=== PATIENT | female | born 1950 | race Caucasian/White ===

== ENCOUNTER → 2016-10-08 | Outpatient (CLI) | payer BC ==
[2016-10-08 08:49] LABS: Basophils % (A) 1 %; CH 30.1; CHCM 32.4; Eosinophils # (A) 0.2 k/uL (0-0.7); Eosinophils % (A) 4 %; HCT 43.4 % (34.0-46.0); HDW 2.18; HGB 14.3 gm/dL (11.4-16.0); Luc # (Auto) 0.19; Luc % (Auto) 4; Lymphocytes # (A) 1.8 k/uL (1.0-4.8); Lymphocytes % (A) 38 %; MCH 30.7 pg (25.0-35.0); MCV 93.2 fL (80.0-100.0); Mean Platelet Volume 8.1; Monocytes # (A) 0.2 k/uL (0-1.0); Monocytes % (A) 5 %; Neutrophils # (A) 2.3 k/uL (1.3-7.7); Neutrophils % (A) 48 %; RBC 4.66 m/uL (3.80-5.40); RDW 13.3 % (11.5-15.5); WBC 4.7 k/uL (3.8-10.6); WBC (Perox) 4.61
[2016-10-08 09:39] LABS: ALT 30 U/L (9-52); AST 22 U/L (14-36); Alkaline Phosphatase 59 U/L (38-126); Anion Gap 10 mmol/L; Blood Urea Nitrogen 21 mg/dL (7-17); Calcium 9.6 mg/dL (8.4-10.2); Carbon Dioxide 29 mmol/L (22-30); Chloride 105 mmol/L (98-107); Cholesterol 199 mg/dL (<200); Glucose 89 mg/dL (74-99); HDL Cholesterol 84 mg/dL (40-60); Non-African American GFR(MDRD) >60 (>60 ml/min/1.73 sqM); Potassium 4.6 mmol/L (3.5-5.1); Sodium 144 mmol/L (137-145); Total Bilirubin 0.5 mg/dL (0.2-1.3); Total Protein 7.1 g/dL (6.3-8.2); Triglycerides 147 mg/dL (<150)
== END ==
LOC: LABWHC1 07:59
PROVIDERS: ATTEND Family Medicine
DX: Z01.419 Encounter for gynecological examination (general) (routine) without abnormal findings (principal); E55.9 Vitamin D deficiency, unspecified; I10 Essential (primary) hypertension; E03.9 Hypothyroidism, unspecified; Z13.220 Encounter for screening for lipoid disorders
CPT/HCPCS: 36415; 80053; 80061; 82306; 84439; 84443; 85025

== ENCOUNTER → 2017-10-05 | Outpatient (CLI) | payer MEDICARE ==
[2017-10-05 08:02] LABS: Basophils # (A) 0.1 k/uL (0-0.2); Basophils % (A) 1 %; Eosinophils # (A) 0.2 k/uL (0-0.7); Eosinophils % (A) 5 %; HCT 43.5 % (34.0-46.0); HGB 13.8 gm/dL (11.4-16.0); Lymphocytes % (A) 44 %; MCH 29.8 pg (25.0-35.0); MCHC 31.8 g/dL (31.0-37.0); Mean Platelet Volume 7.6; Monocytes # (A) 0.2 k/uL (0-1.0); Monocytes % (A) 5 %; Neutrophils # (A) 1.9 k/uL (1.3-7.7); Neutrophils % (A) 42 %; Platelet Count 279 k/uL (150-450); RBC 4.63 m/uL (3.80-5.40); RDW 13.3 % (11.5-15.5); WBC 4.6 k/uL (3.8-10.6)
[2017-10-05 08:43] LABS: ALT 24 U/L (9-52); AST 25 U/L (14-36); Albumin 4.3 g/dL (3.5-5.0); Alkaline Phosphatase 59 U/L (38-126); Anion Gap 10 mmol/L; Blood Urea Nitrogen 27 mg/dL (7-17); Calcium 9.9 mg/dL (8.4-10.2); Carbon Dioxide 30 mmol/L (22-30); Chloride 103 mmol/L (98-107); Cholesterol 208 mg/dL (<200); Glucose 91 mg/dL (74-99); HDL Cholesterol 94 mg/dL (40-60); LDL Cholesterol,Calculated 95 mg/dL (0-99); Potassium 4.6 mmol/L (3.5-5.1); Sodium 143 mmol/L (137-145); Total Bilirubin 0.4 mg/dL (0.2-1.3); Total Protein 7.1 g/dL (6.3-8.2); Triglycerides 97 mg/dL (<150)
[2017-10-05 08:48] LABS: T4, Free (Free Thyroxine) 1.16 ng/dL (0.78-2.19)
== END | disposition home or self-care (01) ==
LOC: LABWHC1 07:09
PROVIDERS: ATTEND Physician Assistant Medical
DX: E78.2 Mixed hyperlipidemia (principal); I10 Essential (primary) hypertension; E03.9 Hypothyroidism, unspecified; E55.9 Vitamin D deficiency, unspecified
CPT/HCPCS: 36415; 80053; 80061; 82306; 84439; 84443; 85025

== ENCOUNTER 2018-03-21 15:10 | Emergency (ER) | payer MEDICARE ==
[2018-03-21 16:47] LABS: Basophils # (A) 0.1 k/uL (0-0.2); Basophils % (A) 1 %; Eosinophils # (A) 0.3 k/uL (0-0.7); Eosinophils % (A) 4 %; HCT 41.4 % (34.0-46.0); HGB 13.3 gm/dL (11.4-16.0); Lymphocytes # (A) 2.2 k/uL (1.0-4.8); Lymphocytes % (A) 31 %; MCH 29.4 pg (25.0-35.0); MCHC 32.1 g/dL (31.0-37.0); MCV 91.6 fL (80.0-100.0); Mean Platelet Volume 7.1; Monocytes # (A) 0.3 k/uL (0-1.0); Monocytes % (A) 5 %; Neutrophils % (A) 58 %; Platelet Count 298 k/uL (150-450); RBC 4.52 m/uL (3.80-5.40); RDW 13.4 % (11.5-15.5)
[2018-03-21 16:55] LABS: Prothrombin Time 9.7 sec (9.0-12.0)
[2018-03-21 17:09] LABS: Albumin 4.4 g/dL (3.5-5.0); Calcium 9.8 mg/dL (8.4-10.2); Creatine Kinase 70 U/L (30-135); Potassium 4.7 mmol/L (3.5-5.1); Total Bilirubin 0.3 mg/dL (0.2-1.3); Total Protein 7.3 g/dL (6.3-8.2)
[2018-03-21] MEDS ORDERED: SODIUM CHLORIDE 0.9% 1,000 ML IV STA (17:11)
[2018-03-21 17:21] LABS: Creatine Kinase MB 0.8 ng/mL (0.0-2.4); Troponin I <0.012 ng/mL (0.000-0.034)
[2018-03-21] MEDS ORDERED: MAG HYDROX/AL HYDROX/SIMETH 30 ML, HYOSCYAMINE ELIXIR 10 ML, CIMETIDINE HCL 300 MG, LID... PO STA ×4 (17:34)
[2018-03-21 17:35] LABS: Appearance,Urine Clear (Clear); Bilirubin,Urine Negative (Negative); Blood,Urine Negative (Negative); Color,Urine Light Yellow; Glucose,Urine (UA) Negative (Negative); Ketones,Urine Negative (Negative); Leukocyte Esterase,Urine Negative (Negative); Nitrite,Urine Negative (Negative); PH, Urine 7.5 (5.0-8.0); Protein,Urine Negative (Negative); Specific Gravity,Urine 1.009 (1.001-1.035); Urobilinogen,Urine <2.0 mg/dL (<2.0)
--- NOTE | 2018-03-21 17:35 | XR ---
EXAMINATION TYPE: XR KUB DATE OF EXAM: 03/21/2018 COMPARISON: NONE HISTORY: Epigastric pain TECHNIQUE: 2 views upright FINDINGS: Bowel gas pattern is normal. There is no sign of intestinal obstruction or pneumoperitoneum . Fecal pattern is normal. There is a single surgical clip in the right mid abdomen. There is no evid ence of a mass. IMPRESSION: Nonacute abdomen.
--- NOTE | 2018-03-21 17:35 | XR ---
EXAMINATION TYPE: XR chest 2V DATE OF EXAM: 03/21/2018 COMPARISON: 05/25/2017 HISTORY: Chest pain TECHNIQUE: Frontal and lateral views of the chest are obtained. FINDINGS: Heart and mediastinum are normal. Lungs are clear. There are surgical clips at the left ax illa. There is no pleural effusion. Bony thorax is intact. IMPRESSION: Normal chest. No change.
--- NOTE | 2018-03-21 17:42 | ED ---
General Adult HPI - General Source: patient, RN notes reviewed Mode of arrival: ambulatory Limitations: no limitations <Salvatore Yates - Last Filed: 03/21/18 18:46> <Arsen Calle - Last Filed: 03/21/18 19:00> - General Chief complaint: Abdominal Pain Stated complaint: chest & back pain Time Seen by Provider: 03/21/18 17:09 - History of Present Illness Initial comments: Her old female presents to the emergency department for a chief complaint of epigastric pain 4 days. She states the pain is in the epigastric area and radiates to the back as well. Patient states they were on vacation camping when the pain started. Patient states she was sleeping when she first noticed the pain. Patient states that sitting up helps to alleviate the pain. Patient states the pain occurred on and off throughout the day and always worsening when she laid down. He shouldn't is unable to describe the pain. Patient states her pain is at a 4 out of 10 at this time but does not want anything for pain. Patient admits to mild nausea over the past few days intermittently but denies nausea at this time or vomiting. Patient denies any diarrhea. Patient states she has been burping somewhat more than normal. Patient states she has felt acid reflux before but this is somewhat worse. Patient states she has had a history of breast cancer with the last diagnosis occurring 2 years ago. Patient denies any cardiac or abdominal medical history.No fevers or chills. Patient has no other complaints at this time including shortness of breath, chest pain, abdominal pain, nausea or vomiting, headache, or visual changes. ( Salvatore Yates) - Related Data Home Medications Medication Instructions Recorded Confirmed Aspirin 81 mg PO DAILY 12/05/14 03/21/18 Biotin 5 mg PO DAILY 12/05/14 03/21/18 Celecoxib [CeleBREX] 200 mg PO BID 12/05/14 03/21/18 Fexofenadine HCl [Myrna Allergy] 180 mg PO DAILY 12/05/14 03/21/18 Levothyroxine Sodium [Synthroid] 75 mcg PO QAM 12/05/14 03/21/18 [place]-3 Fatty Acids/Fish Oil [Fish 2 cap PO BID 12/05/14 03/21/18 Oil 1,000 mg Softgel] Pseudoephedrine [Sudafed] 120 mg PO QAM 12/05/14 03/21/18 Simvastatin [Zocor] 10 mg PO HS 12/05/14 03/21/18 Triamcinolone Acetonide [Nasacort] 1 spray EA NOSTRIL QAM PRN 12/05/14 03/21/18 Vitamin E (Dl,Tocopheryl Acet) 400 unit PO DAILY 12/05/14 03/21/18 [Vitamin E] cycloSPORINE [Restasis] 1 drop BOTH EYES BID 12/05/14 03/21/18 Polyethylene Glycol 3350 [Miralax] 17 gm PO MOWEFR 11/20/15 03/21/18 Acetaminophen Tab [Tylenol Tab] 1,000 mg PO TID PRN 03/21/18 03/21/18 Calcium/Vit D3 220mg/500iu 2 tab PO DAILY 03/21/18 03/21/18 Cholecalciferol [Vitamin D3] 1,000 unit PO DAILY 03/21/18 03/21/18 Lisinopril [Zestril] 5 mg PO DAILY 03/21/18 03/21/18 Turmeric Root Extract [Turmeric] 1,000 mg PO DAILY 03/21/18 03/21/18 Allergies Allergy/AdvReac Type Severity Reaction Status Date / Time alcohol Allergy Anaphylaxis Verified 03/21/18 17:37 [From Mastisol Liquid Adhesive] gum mastic Allergy Anaphylaxis Verified 03/21/18 17:37 [From Mastisol Liquid Adhesive] methyl salicylate Allergy Anaphylaxis Verified 03/21/18 17:37 [From Mastisol Liquid Adhesive] propofol Allergy Anaphylaxis Verified 03/21/18 17:37 storax Allergy Anaphylaxis Verified 03/21/18 17:37 [From Mastisol Liquid Adhesive] Review of Systems ROS Other: All systems not noted in ROS Statement are negative. <Salvatore Yates - Last Filed: 03/21/18 18:46> ROS Other: All systems not noted in ROS Statement are negative. <Arsen Calle - Last Filed: 03/21/18 19:00> ROS Statement: Those systems with pertinent positive or pertinent negative responses have been documented in the HPI. Past Medical History Past Medical History: Cancer, Thyroid Disorder Additional Past Medical History / Comment(s): BREAST CANCER (2003). DRY EYES. PHENOBARB FOR INSOMNIA. History of Any Multi-Drug Resistant Organisms: None Reported Past Surgical History: Breast Surgery, Orthopedic Surgery Additional Past Surgical History / Comment(s): bilat MASTECTOMY. TMJ. SEVERAL SURGERIES ON FEET FOR PLANTAR FASCIATIS. ACHILLES TENDON REPAIR. D & C. Past Anesthesia/Blood Transfusion Reactions: Previous Problems w/ Anesthesia, Postoperative Nausea & Vomiting (PONV) Additional Past Anesthesia/Blood Transfusion Reaction / Comment(s): FIRST REACTION TO PROPOFOL WAS REDNESS UP THE ARM WHERE IV HAD BEEN STARTED. SECOND REACTION, ANAPHYLASIS. Past Psychological History: No Psychological Hx Reported Smoking Status: Never smoker Past Alcohol Use History: None Reported Past Drug Use History: None Reported - Past Family History Father Family Medical History: Cancer Additional Family Medical History / Comment(s): BRAIN <Salvatore Yates - Last Filed: 03/21/18 18:46> General Exam Limitations: no limitations General appearance: alert, in no apparent distress Head exam: Present: atraumatic, normocephalic, normal inspection Eye exam: Present: normal appearance. Absent: scleral icterus, conjunctival injection ENT exam: Present: normal exam, mucous membranes moist Neck exam: Present: normal inspection, full ROM. Absent: tenderness, meningismus, lymphadenopathy Respiratory exam: Present: normal lung sounds bilaterally. Absent: respiratory distress, wheezes, rales, rhonchi, stridor Cardiovascular Exam: Present: regular rate, normal rhythm, normal heart sounds. Absent: systolic murmur, diastolic murmur, rubs, gallop, clicks GI/Abdominal exam: Present: soft, tenderness (mild epigastric tenderness, palpation reproduces symptoms. no tenderness in the LUQ or RUQ or lower abdomen) , normal bowel sounds, other (negative mo sign, negative obturator/psoas signs). Absent: distended, guarding (no gaurding when palpated), rebound, rigid <Salvatore Yates - Last Filed: 03/21/18 18:46> Course <Salvatore Yates - Last Filed: 03/21/18 18:46> <Arsen Calle - Last Filed: 03/21/18 19:00> Vital Signs 03/21/18 03/21/18 16:07 18:20 Temperature 98.1 F Pulse Rate 99 74 Respiratory 18 18 Rate Blood Pressure 145/91 162/84 O2 Sat by Pulse 99 99 Oximetry - Reevaluation(s) Reevaluation #1: 03/21/18 19:00 PA supervision: I personally saw and examined the patient. IV reviewed and agree with the PAs findings including all diagnostic interpretations and treatment plans is written unless otherwise stated. (Arsen Calle) Medical Decision Making - Lab Data Result diagrams: 03/21/18 16:32 03/21/18 16:32 <Salvatore Yates - Last Filed: 03/21/18 18:46> - Lab Data Result diagrams: 03/21/18 16:32 03/21/18 16:32 <Arsen Calle - Last Filed: 03/21/18 19:00> - Medical Decision Making 67-year-old female presents to the emergency determine for a chief complaint of epigastric pain 4 days. Patient states the pain is worse when she lies down and better when she sits up. Patient does have a history of breast cancer, no cardiac or abdominal history. On exam patient has mild epigastric tenderness without guarding. Negative Mo sign. No left upper quadrant tenderness. CBC unremarkable. Cardiac panel and troponin negative. CMP unremarkable. Amylase and lipase within normal limits. Urine shows no evidence of infection or blood. Chest x-ray shows a normal chest, no change. CT abdomen with contrast shows a normal spleen and pancreas and gallbladder. Bile ducts are not dilated. Some spondylosis in the lower spine without any significant spinal stenosis. Normal appendix. Given patient's pain increases when lying down as well as epigastric location it is likely related to a gastritis or GERD. Patient will continue her Prilosec given 3 days ago by an urgent care. She will follow up with GI in 1-2 days. Patient aware to return to the emergency Department if she has any worsening symptoms or shortness of breath. ( Salvatore Yates) - Lab Data Lab Results 03/21/18 03/21/18 03/21/18 Range/Units 16:32 16:32 16:32 WBC 7.0 (3.8-10.6) k/uL RBC 4.52 (3.80-5.40) m/uL Hgb 13.3 (11.4-16.0) gm/dL Hct 41.4 (34.0-46.0) % MCV 91.6 (80.0-100.0) fL MCH 29.4 (25.0-35.0) pg MCHC 32.1 (31.0-37.0) g/dL RDW 13.4 (11.5-15.5) % Plt Count 298 (150-450) k/uL Neutrophils % 58 % Lymphocytes % 31 % Monocytes % 5 % Eosinophils % 4 % Basophils % 1 % Neutrophils # 4.0 (1.3-7.7) k/uL Lymphocytes # 2.2 (1.0-4.8) k/uL Monocytes # 0.3 (0-1.0) k/uL Eosinophils # 0.3 (0-0.7) k/uL Basophils # 0.1 (0-0.2) k/uL PT (9.0-12.0) sec INR (<1.2) APTT (22.0-30.0) sec Sodium 141 (137-145) mmol/L Potassium 4.7 (3.5-5.1) mmol/L Chloride 103 (98-107) mmol/L Carbon Dioxide 29 (22-30) mmol/L Anion Gap 9 mmol/L BUN 25 H (7-17) mg/dL Creatinine 1.04 (0.52-1.04) mg/dL Est GFR (CKD-EPI)AfAm 65 (>60 ml/min/1.73 sqM) Est GFR (CKD-EPI)NonAf 57 (>60 ml/min/1.73 sqM) Glucose 96 (74-99) mg/dL Calcium 9.8 (8.4-10.2) mg/dL Total Bilirubin 0.3 (0.2-1.3) mg/dL AST 32 (14-36) U/L ALT 35 (9-52) U/L Alkaline Phosphatase 57 (38-126) U/L Total Creatine Kinase 70 (30-135) U/L CK-MB (CK-2) 0.8 (0.0-2.4) ng/mL CK-MB (CK-2) Rel Index 1.1 Troponin I <0.012 (0.000-0.034) ng/mL Total Protein 7.3 (6.3-8.2) g/dL Albumin 4.4 (3.5-5.0) g/dL Amylase 83 (30-110) U/L Lipase 54 (23-300) U/L Urine Color Urine Appearance (Clear) Urine pH (5.0-8.0) Ur Specific [place] (1.001-1.035) Urine Protein (Negative) Urine Glucose (UA) (Negative) Urine Ketones (Negative) Urine Blood (Negative) Urine Nitrite (Negative) Urine Bilirubin (Negative) Urine Urobilinogen (<2.0) mg/dL Ur Leukocyte Esterase (Negative) 03/21/18 03/21/18 Range/Units 16:32 17:15 WBC (3.8-10.6) k/uL RBC (3.80-5.40) m/uL Hgb (11.4-16.0) gm/dL Hct (34.0-46.0) % MCV (80.0-100.0) fL MCH (25.0-35.0) pg MCHC (31.0-37.0) g/dL RDW (11.5-15.5) % Plt Count (150-450) k/uL Neutrophils % % Lymphocytes % % Monocytes % % Eosinophils % % Basophils % % Neutrophils # (1.3-7.7) k/uL Lymphocytes # (1.0-4.8) k/uL Monocytes # (0-1.0) k/uL Eosinophils # (0-0.7) k/uL Basophils # (0-0.2) k/uL PT 9.7 (9.0-12.0) sec INR 1.0 (<1.2) APTT 23.0 (22.0-30.0) sec Sodium (137-145) mmol/L Potassium (3.5-5.1) mmol/L Chloride (98-107) mmol/L Carbon Dioxide (22-30) mmol/L Anion Gap mmol/L BUN (7-17) mg/dL Creatinine (0.52-1.04) mg/dL Est GFR (CKD-EPI)AfAm (>60 ml/min/1.73 sqM) Est GFR (CKD-EPI)NonAf (>60 ml/min/1.73 sqM) Glucose (74-99) mg/dL Calcium (8.4-10.2) mg/dL Total Bilirubin (0.2-1.3) mg/dL AST (14-36) U/L ALT (9-52) U/L Alkaline Phosphatase (38-126) U/L Total Creatine Kinase (30-135) U/L CK-MB (CK-2) (0.0-2.4) ng/mL CK-MB (CK-2) Rel Index Troponin I (0.000-0.034) ng/mL Total Protein (6.3-8.2) g/dL Albumin (3.5-5.0) g/dL Amylase (30-110) U/L Lipase (23-300) U/L Urine Color Light Yellow Urine Appearance Clear (Clear) Urine pH 7.5 (5.0-8.0) Ur Specific [place] 1.009 (1.001-1.035) Urine Protein Negative (Negative) Urine Glucose (UA) Negative (Negative) Urine Ketones Negative (Negative) Urine Blood Negative (Negative) Urine Nitrite Negative (Negative) Urine Bilirubin Negative (Negative) Urine Urobilinogen <2.0 (<2.0) mg/dL Ur Leukocyte Esterase Negative (Negative) Disposition Is patient prescribed a controlled substance at d/c from ED?: No Time of Disposition: 18:38 <Salvatore Yates - Last Filed: 03/21/18 18:46> <Arsen Calle - Last Filed: 03/21/18 19:00> Clinical Impression: Gastritis, GERD (gastroesophageal reflux disease) Disposition: HOME SELF-CARE Condition: Good Instructions: Diet for Stomach Ulcers and Gastritis (ED), Gastroesophageal Reflux Disease (ED) Additional Instructions: Please follow up with primary care as well as GI in 1-2 days. Please continue to take Prilosec. Try not to eat close to bedtime and try not to eat acidic foods. Return to the emergency department if you've any worsening symptoms. Referrals: Daron Burleson III, MD [Primary Care Provider] - 1-2 days Mychal Sr MD [Medical Doctor] - 1-2 days Addendum entered and electronically signed by Salvatore Yates PA-C 03/21/18 18 :53: Patient states GI cocktail helped somewhat. EKG: Normal sinus rhythm, ventricular rate 86, FL interval 164, QRS duration 96 , no evidence of ST elevation or depression
--- NOTE | 2018-03-21 18:16 | CT ---
EXAMINATION TYPE: CT abdomen pelvis w con DATE OF EXAM: 03/21/2018 COMPARISON: Epigastric pain. Back pain HISTORY: Epigastric and back pain. CT DLP: 473.9 mGycm Automated exposure control for dose reduction was used. TECHNIQUE: Helical acquisition of images was performed from the lung bases through the pelvis. CONTRAST: Performed without Oral Contrast and with IV Contrast, patient injected with 80 mL of Isovue M300. FINDINGS: There is subsegmental atelectasis at the posterior lung base on the right side. There is no pleural e ffusion. Heart size is normal. spleen pancreas gallbladder appear normal. Bile ducts are not dilated . There is 12 mm cyst in the anterior right lobe of the liver. There is no adrenal mass. Kidneys show satisfactory contrast opacification. There is no hydronephrosis. There is no retroperitoneal adenopa thy. Abdominal aorta is atheromatous. There is no intestinal wall thickening. There are no dilated lo ops. Uterus is anteverted. Bladder distends smoothly. There is no pelvic mass. There is some spondylo sis in the lower lumbar spine. There is 5 mm degenerative L4-5 spondylolisthesis. The appendix appear s normal. IMPRESSION: DEGENERATIVE FIRST-DEGREE L4-5 SPONDYLOLISTHESIS. SMALL HEPATIC CYST. NORMAL APPENDIX. NO SIGNIFICANT SPINAL STENOSIS.
[2018-03-21 18:21] VITALS: PULSE 74
[2018-03-21 19:02] VITALS: BP 175/76; RESP 16; TEMP 98.4
== END 2018-03-21 19:02 | disposition home or self-care (01) ==
LOC: EC 15:10
DX: K21.9 Gastro-esophageal reflux disease without esophagitis (principal); K29.70 Gastritis, unspecified, without bleeding; E07.9 Disorder of thyroid, unspecified; Z85.3 Personal history of malignant neoplasm of breast; Z79.82 Long term (current) use of aspirin; Z79.899 Other long term (current) drug therapy; Z91.048 Other nonmedicinal substance allergy status; Z88.8 Allergy status to other drugs, medicaments and biological substances
CPT/HCPCS: 36415; 71046; 74018; 74177; 80053; 81003; 82150; 82550; 82553; 83690; 84484; 85025; 85610; 85730; 93005; 96360; 99284

== ENCOUNTER → 2018-05-08 | Outpatient (CLI) | payer MEDICARE ==
--- NOTE | 2018-05-08 08:19 | US ---
EXAMINATION TYPE: US abdomen complete DATE OF EXAM: 05/08/2018 COMPARISON: CT 03/21/2018 CLINICAL HISTORY: R10.13 EPIGASTRIC PAIN. One episode of epigastric pain in March, better now EXAM MEASUREMENTS: Liver Length: 16.1 cm Gallbladder Wall: 0.2 cm CBD: 0.46 cm Spleen: Not measured cm Right Kidney: 9.6 x 3.5 x 4.6 cm Left Kidney: 9.4 x 4.6 x 4.4 cm Pancreas: Obscured by bowel gas, visualized portions wnl Liver: Heterogeneous. Cystic area visualized measuring 1.2cm in right lobe Gallbladder: wnl Evidence for sonographic Mo's sign: No CBD: wnl Spleen: Unable to visualize on this exam, Obscured by overlying bowel gas Right Kidney: No hydronephrosis or masses seen Left Kidney: Extremely difficult and limited visualization due to overlying bowel gas. Visualized por tions wnl Upper IVC: wnl Abd Aorta: Atherosclerotic changes visualized IMPRESSION: 1. The liver is heterogeneous and contains a focal hypoechoic lesion. Correlate for hepatocellular di sease, hepatitis or less likely fatty infiltration. Hypoechoic lesion likely related to simple cyst d escribed by CT scan. 2. Pancreas, left kidney and spleen are secured by bowel gas. 3. The gallbladder is distended but there is no wall thickening or gallstones correlate clinically.
== END | disposition home or self-care (01) ==
LOC: RADUSWWP 06:48
PROVIDERS: ATTEND Internal Medicine
DX: K82.8 Other specified diseases of gallbladder (principal); K76.89 Other specified diseases of liver
CPT/HCPCS: 76700

== ENCOUNTER → 2018-10-20 | Outpatient (CLI) | payer MEDICARE ==
[2018-10-20 08:50] LABS: Basophils # (A) 0.1 k/uL (0-0.2); Basophils % (A) 1 %; Eosinophils # (A) 0.3 k/uL (0-0.7); Eosinophils % (A) 4 %; HCT 44.7 % (34.0-46.0); HGB 13.8 gm/dL (11.4-16.0); Lymphocytes # (A) 1.5 k/uL (1.0-4.8); Lymphocytes % (A) 23 %; MCHC 30.8 g/dL (31.0-37.0); MCV 94.2 fL (80.0-100.0); Mean Platelet Volume 7.2; Monocytes # (A) 0.4 k/uL (0-1.0); Monocytes % (A) 6 %; Neutrophils # (A) 4.2 k/uL (1.3-7.7); Neutrophils % (A) 64 %; Platelet Count 304 k/uL (150-450); RBC 4.75 m/uL (3.80-5.40); RDW 13.1 % (11.5-15.5); WBC 6.6 k/uL (3.8-10.6)
[2018-10-20 16:31] LABS: Albumin 4.4 g/dL (3.80-4.90); Anion Gap 7.3 mmol/L (4.00-12.00); Calcium 9.4 mg/dL (8.7-10.3); Carbon Dioxide 28.7 mmol/L (21.6-31.8); Globulin 2.2 g/dL (1.6-3.3); Potassium 4.6 mmol/L (3.5-5.5); Total Bilirubin 0.3 mg/dL (0.2-1.2); Total Protein 6.6 g/dL (6.2-8.2)
== END | disposition home or self-care (01) ==
LOC: LABWHC1 08:11
PROVIDERS: ATTEND Physician Assistant Medical
DX: E78.2 Mixed hyperlipidemia (principal); E55.9 Vitamin D deficiency, unspecified; I10 Essential (primary) hypertension; E03.9 Hypothyroidism, unspecified
CPT/HCPCS: 36415; 80053; 80061; 82306; 84443; 85025

== ENCOUNTER → 2018-12-18 | Outpatient (CLI) | payer MEDICARE ==
--- NOTE | 2018-12-18 15:19 | XR ---
EXAMINATION TYPE: XR chest 2V DATE OF EXAM: 12/18/2018 COMPARISON: 03/21/2018 HISTORY: Breast cancer. History of double mastectomy. TECHNIQUE: Frontal and lateral views of the chest are obtained. FINDINGS: There is no focal air space opacity, pleural effusion, or pneumothorax seen. Surgical clip s are seen along the left chest wall from prior mastectomy. The cardiac silhouette size is within nor mal limits. The osseous structures are intact. IMPRESSION: No acute cardiopulmonary process.
== END | disposition home or self-care (01) ==
LOC: RADXRMAIN 13:44
PROVIDERS: ATTEND Internal Medicine Hematology & Oncology
DX: C50.412 Malignant neoplasm of upper-outer quadrant of left female breast (principal); C50.411 Malignant neoplasm of upper-outer quadrant of right female breast
CPT/HCPCS: 71046

== ENCOUNTER → 2019-10-23 | Outpatient (CLI) | payer MEDICARE ==
[2019-10-23 08:28] LABS: Basophils % (A) 1 %; Eosinophils # (A) 0.2 k/uL (0-0.7); Eosinophils % (A) 4 %; HCT 44.9 % (34.0-46.0); HGB 14.3 gm/dL (11.4-16.0); Lymphocytes # (A) 2.2 k/uL (1.0-4.8); Lymphocytes % (A) 42 %; MCH 29.7 pg (25.0-35.0); MCHC 31.9 g/dL (31.0-37.0); Mean Platelet Volume 7.7; Monocytes # (A) 0.3 k/uL (0-1.0); Monocytes % (A) 6 %; Neutrophils # (A) 2.3 k/uL (1.3-7.7); Neutrophils % (A) 44 %; Platelet Count 276 k/uL (150-450); RBC 4.83 m/uL (3.80-5.40); WBC 5.3 k/uL (3.8-10.6)
[2019-10-23 16:45] LABS: African American GFR (CKD) 67.5 (60.0-200.0); Albumin 4.7 g/dL (3.80-4.90); Albumin/Globulin Ratio 2.14 (1.60-3.17); Anion Gap 5.2 mmol/L (4.00-12.00); Calcium 9.6 mg/dL (8.7-10.3); Carbon Dioxide 33.8 mmol/L (21.6-31.8); Chol/HDL Ratio 2.7; Globulin 2.2 g/dL (1.6-3.3); LDL Cholesterol,Calculated 115.6 mg/dL (0.0-131.0); Non-African American GFR(CKD) 58.2 (60.0-200.0); Potassium 4.7 mmol/L (3.5-5.5); Total Bilirubin 0.4 mg/dL (0.3-1.2); Total Protein 6.9 g/dL (6.2-8.2); VLDL Calculation 30.4 mg/dL (5.00-40.00)
== END | disposition home or self-care (01) ==
LOC: LABWHC1 07:40
PROVIDERS: ATTEND Family Medicine
DX: I10 Essential (primary) hypertension (principal); E78.2 Mixed hyperlipidemia; E03.9 Hypothyroidism, unspecified; E55.9 Vitamin D deficiency, unspecified
CPT/HCPCS: 36415; 80053; 80061; 82306; 84443; 85025

== ENCOUNTER → 2020-10-09 | Outpatient (CLI) | payer MEDICARE ==
[2020-10-09 10:30] LABS: ALT 20 U/L (4-34); AST 26 U/L (14-36); African American GFR (CKD) 83 (>60 ml/min/1.73 sqM); Albumin 4.4 g/dL (3.5-5.0); Albumin/Globulin Ratio 1.7; Alkaline Phosphatase 58 U/L (38-126); Anion Gap 5 mmol/L; Blood Urea Nitrogen 25 mg/dL (7-17); Calcium 9.6 mg/dL (8.4-10.2); Carbon Dioxide 30 mmol/L (22-30); Chloride 104 mmol/L (98-107); Cholesterol 209 mg/dL (<200); Globulin 2.6 g/dL; Glucose 92 mg/dL (74-99); HDL Cholesterol 84 mg/dL (40-60); LDL Cholesterol,Calculated 101 mg/dL (0-99); Non-African American GFR(CKD) 72 (>60 ml/min/1.73 sqM); Potassium 4.9 mmol/L (3.5-5.1); Sodium 139 mmol/L (137-145); Total Bilirubin 0.5 mg/dL (0.2-1.3); Triglycerides 118 mg/dL (<150)
[2020-10-09 15:56] LABS: Basophils # (A) 0.06 X 10*3/uL (0.00-0.10); Basophils % (A) 1.2 %; Eosinophils # (A) 0.19 X 10*3/uL (0.04-0.35); Eosinophils % (A) 3.9 %; HCT 42.7 % (37.2-46.3); HGB 13.9 g/dL (12.0-15.0); Lymphocytes # (A) 1.91 X 10*3/uL (0.90-5.00); Lymphocytes % (A) 39.1 %; MCH 30.7 pg (27.0-32.0); MCHC 32.6 g/dL (32.0-37.0); MCV 94.3 fL (80.0-97.0); Mean Platelet Volume 11.3 fL (9.5-12.2); Monocytes # (A) 0.37 X 10*3/uL (0.20-1.00); Monocytes % (A) 7.6 %; Neutrophils # (A) 2.35 X 10*3/uL (1.80-7.70); Platelet Count 282 X 10*3/uL (140-440); RBC 4.53 X 10*6/uL (4.10-5.20); RDW 13.2 % (11.5-14.5); WBC 4.89 X 10*3/uL (4.50-10.00)
== END | disposition home or self-care (01) ==
LOC: LABWHC1 08:15
PROVIDERS: ATTEND Family Medicine
DX: E78.2 Mixed hyperlipidemia (principal); E03.9 Hypothyroidism, unspecified; E55.9 Vitamin D deficiency, unspecified; I10 Essential (primary) hypertension
CPT/HCPCS: 36415; 80053; 80061; 82306; 84443; 85025

== ENCOUNTER → 2021-10-08 | Outpatient (CLI) | payer MEDICARE ==
[2021-10-08 11:07] LABS: Basophils # (A) 0.04 X 10*3/uL (0.00-0.10); Basophils % (A) 0.7 %; Eosinophils # (A) 0.17 X 10*3/uL (0.04-0.35); Eosinophils % (A) 3.2 %; HCT 43.1 % (37.2-46.3); HGB 13.6 g/dL (12.0-15.0); Immature Grans, Automated 0.2 %; Lymphocytes # (A) 2.05 X 10*3/uL (0.90-5.00); Lymphocytes % (A) 38.2 %; MCH 28.8 pg (27.0-32.0); MCHC 31.6 g/dL (32.0-37.0); MCV 91.3 fL (80.0-97.0); Mean Platelet Volume 10.6 fL (9.5-12.2); Monocytes # (A) 0.48 X 10*3/uL (0.20-1.00); Monocytes % (A) 8.9 %; NRBC Per 100 WBC 0 /100 WBCS (0.0-0.0); Neutrophils # (A) 2.62 X 10*3/uL (1.80-7.70); Neutrophils % (A) 48.8 %; Platelet Count 312 X 10*3/uL (140-440); RBC 4.72 X 10*6/uL (4.10-5.20); WBC 5.37 X 10*3/uL (4.50-10.00)
[2021-10-08 11:43] LABS: ALT 21 U/L (8-44); AST 20 U/L (13-35); Albumin 4.5 g/dL (3.8-4.9); Albumin/Globulin Ratio 1.73 (1.60-3.17); Alkaline Phosphatase 67 U/L (41-126); BUN/Creat Ratio 26.76 Ratio (12.00-20.00); Blood Urea Nitrogen 23.6 mg/dL (9.0-27.0); Calcium 9.4 mg/dL (8.7-10.3); Chloride 100 mmol/L (96-109); Chol/HDL Ratio 2.91 Ratio; Globulin 2.6 g/dL (1.6-3.3); Glucose 94 mg/dL (70-110); LDL Cholesterol,Calculated 128.1 mg/dL (0.0-131.0); Non-African American GFR(CKD) 67.3 (60.0-200.0); Potassium 4.2 mmol/L (3.5-5.5); Sodium 140 mmol/L (135-145); Total Protein 7.1 g/dL (6.2-8.2)
== END | disposition home or self-care (01) ==
LOC: LABWHC1 08:01
PROVIDERS: ATTEND Family Medicine
DX: Z00.00 Encounter for general adult medical examination without abnormal findings (principal); I10 Essential (primary) hypertension; E78.2 Mixed hyperlipidemia; E03.9 Hypothyroidism, unspecified; E55.9 Vitamin D deficiency, unspecified
CPT/HCPCS: 36415; 80053; 80061; 82306; 84439; 84443; 85025

== ENCOUNTER → 2021-12-15 | Outpatient (CLI) | payer MEDICARE ==
--- NOTE | 2021-12-15 16:04 | BD ---
EXAMINATION TYPE: Axial Bone Density DATE OF EXAM: 12/15/2021 COMPARISON: NONE CLINICAL HISTORY: 71 year old Female. ICD-10 CODE: M85.80 DISORDER OF BONE DENSITY Height: 64 Weight: 143.9 FRAX RISK QUESTIONS: Alcohol (3 or more units per day): no Family History (Parent hip fracture): no Glucocorticoids (More than 3mos): no (Ex: prednisone, prednisolone, methylprednisolone, dexamethasone, and hydrocortisone). History of Fracture in Adulthood: no Secondary Osteoporosis: 1. Type 1 Diabetes: no 2. Hyperthyroidism: no 3. Menopause before 45: no 4. Malnutrition: no 5. Chronic liver disease: no Rheumatoid Arthritis: no Current Tobacco Use: no RISK FACTORS HISTORY OF: Surgery to Spine/Hip(right/left)/Wrist (right/left): no Family History of Osteoporosis: no Active: yes Diet low in dairy products/other sources of calcium: no Postmenopausal woman: yes Lost more than 2 inches in height since high school: no MEDICATIONS: Thyroid Medications: levothyroxine How [place] years ago Additional History: EXAM MEASUREMENTS: Bone mineral densitometry was performed using the [employer] System. Bone mineral density as measured about the Lumbar spine is: ----- L1-L4(G/cm2): 1.269 T Score Values are as follows: ----- L1: -1.2 ----- L2: 2.1 ----- L3: 1.5 ----- L4: 0.3 ----- L1-L4: 0.7 Bone mineral density has: increased 8.6 % since study of: 04.07.2015 Bone mineral density about the R hip (g/cm2): 0.827 Bone mineral density about the L hip (g/cm2): 0.783 T Score values are as follows: -----R Neck: -1.5 -----L Neck: -1.8 -----R Total: -1.8 -----L Total: -2.0 Bone mineral density has: -11.4 % since study of: 04.07.2015 FRAX%s: The graph provided illustrates a 11.1% chance for a major osteoporotic fx and a 1.9% chance f or the hips probability for fx in 10 years time. IMPRESSION: Osteopenia NOTE: T-SCORE=SD OF THE YOUNG ADULT MEAN.
== END | disposition home or self-care (01) ==
LOC: RADBDWWP 14:52
PROVIDERS: ATTEND Family Medicine
DX: M85.89 Other specified disorders of bone density and structure, multiple sites (principal)
CPT/HCPCS: 77080

== ENCOUNTER → 2022-10-20 | Outpatient (CLI) | payer MEDICARE ==
[2022-10-20 10:38] LABS: Basophils # (A) 0.07 X 10*3/uL (0.00-0.10); Basophils % (A) 1.2 %; Eosinophils # (A) 0.22 X 10*3/uL (0.04-0.35); Eosinophils % (A) 3.7 %; HCT 43.7 % (37.2-46.3); HGB 13.7 g/dL (12.0-15.0); Immature Grans, Automated 0.3 %; Lymphocytes # (A) 2.52 X 10*3/uL (0.90-5.00); Lymphocytes % (A) 42.7 %; MCH 29.3 pg (27.0-32.0); MCHC 31.4 g/dL (32.0-37.0); MCV 93.4 fL (80.0-97.0); Mean Platelet Volume 10.8 fL (9.5-12.2); Monocytes # (A) 0.48 X 10*3/uL (0.20-1.00); Monocytes % (A) 8.1 %; NRBC Per 100 WBC 0 /100 WBCS (0.0-0.0); Neutrophils # (A) 2.59 X 10*3/uL (1.80-7.70); Platelet Count 328 X 10*3/uL (140-440); RBC 4.68 X 10*6/uL (4.10-5.20); RDW 13.7 % (11.5-14.5)
[2022-10-20 11:12] LABS: ALT 23 U/L (8-44); AST 20 U/L (13-35); African American GFR (CKD) 68.9 (60.0-200.0); Albumin 4.6 g/dL (3.8-4.9); Albumin/Globulin Ratio 1.87 (1.60-3.17); Alkaline Phosphatase 59 U/L (41-126); BUN/Creat Ratio 28.36 Ratio (12.00-20.00); Blood Urea Nitrogen 27.4 mg/dL (9.0-27.0); Calcium 9.9 mg/dL (8.7-10.3); Carbon Dioxide 28.6 mmol/L (20.0-27.5); Chloride 103 mmol/L (96-109); Chol/HDL Ratio 2.51 Ratio; Globulin 2.4 g/dL (1.6-3.3); Glucose 92 mg/dL (70-110); Non-African American GFR(CKD) 59.5 (60.0-200.0); Potassium 5.1 mmol/L (3.5-5.5); Sodium 141 mmol/L (135-145)
== END | disposition home or self-care (01) ==
LOC: LABWHC1 07:46
PROVIDERS: ATTEND Family Medicine
DX: Z00.00 Encounter for general adult medical examination without abnormal findings (principal); I10 Essential (primary) hypertension; E78.2 Mixed hyperlipidemia; E03.9 Hypothyroidism, unspecified
CPT/HCPCS: 36415; 80053; 80061; 82306; 84443; 85025

== ENCOUNTER → 2023-01-17 | Outpatient (CLI) | payer MEDICARE ==
[2023-01-17 13:21] VITALS: BP 130/79; PULSE 85; RESP 17; TEMP 98.3
--- NOTE | 2023-01-17 14:13 | P.HPOB ---
History of Present Illness H&P Date: 01/17/23 Chief Complaint: The patient is here for her routine gynecologic exam. This is a 80-year-old with an LMP of 2003. The patient is here to establish with this office. She has a history of bilateral breast cancers and has had bilateral mastectomies. She has been amenorrheic since the chemotherapy with her first breast cancer in 2003. She denies any postmenopausal bleeding and is without gynecologic complaints. It has been about a year since her last pelvic exam. Review of Systems Her weight has been stable. Respiratory: Occasional ALLERGY symptoms. She denies cardiac or GI problems. Past Medical History Past Medical History: Cancer, Hyperlipidemia, Hypertension, Osteoarthritis (OA), Thyroid Disorder Additional Past Medical History / Comment(s): BREAST CANCER (left 2003, right 2015). DRY EYES. Insomnia. Hypothyroidism, seasonal ALLERGIES, and osteopenia. History of Any Multi-Drug Resistant Organisms: None Reported Past Surgical History: Breast Surgery, Orthopedic Surgery Additional Past Surgical History / Comment(s): bilat MASTECTOMY(Left 2003, right 2015). Left breast flap for reconstruction and right breast implant. TMJ. SEVERAL SURGERIES ON FEET FOR PLANTAR FASCIATIS. ACHILLES TENDON REPAIR. D & C. Colonoscopy 2009(more recent Cologard testing). Past Anesthesia/Blood Transfusion Reactions: Previous Problems w/ Anesthesia, Postoperative Nausea & Vomiting (PONV) Additional Past Anesthesia/Blood Transfusion Reaction / Comment(s): FIRST REACTION TO PROPOFOL WAS REDNESS UP THE ARM WHERE IV HAD BEEN STARTED. SECOND REACTION, ANAPHYLASIS. Past Psychological History: No Psychological Hx Reported (She denies current depression.) Smoking Status: Never smoker Past Alcohol Use History: None Reported Past Drug Use History: None Reported Additional History: She has been since 1975 and is sexually active. She is a retired teacher. - Past Family History Father Family Medical History: Cancer Additional Family Medical History / Comment(s): BRAIN cancer. Mother Family Medical History: Hypertension Additional Family Medical History / Comment(s): She denies family history of cancer of the breast, uterus, ovaries, or colon. Medications and Allergies Home Medications Medication Instructions Recorded Confirmed Type Aspirin 81 mg PO DAILY 12/05/14 01/17/23 History Biotin 5 mg PO DAILY 12/05/14 01/17/23 History Celecoxib [CeleBREX] 200 mg PO BID 12/05/14 01/17/23 History Fexofenadine HCl [Myrna Allergy] 180 mg PO DAILY 12/05/14 01/17/23 History Levothyroxine Sodium [Synthroid] 75 mcg PO QAM 12/05/14 01/17/23 History [place]-3 Fatty Acids/Fish Oil [Fish 2 cap PO BID 12/05/14 01/17/23 History Oil 1,000 mg Softgel] Pseudoephedrine [Sudafed] 120 mg PO QAM 12/05/14 01/17/23 History Simvastatin [Zocor] 10 mg PO HS 12/05/14 01/17/23 History Triamcinolone Acetonide [Nasacort] 1 spray EA NOSTRIL QAM PRN 12/05/14 01/17/23 History Vitamin E (Dl,Tocopheryl Acet) 400 unit PO DAILY 12/05/14 01/17/23 History [Vitamin E (400 Iu = 180 mg)] cycloSPORINE [Restasis] 1 drop BOTH EYES BID 12/05/14 01/17/23 History Acetaminophen Tab [Tylenol Tab] 1,000 mg PO TID PRN 03/21/18 01/17/23 History Calcium/Vit D3 220mg/500iu 2 tab PO DAILY 03/21/18 01/17/23 History Cholecalciferol [Vitamin D3] 1,000 unit PO DAILY 03/21/18 01/17/23 History Turmeric Root Extract [Turmeric] 1,000 mg PO DAILY 03/21/18 01/17/23 History lisinopriL [Zestril] 5 mg PO DAILY 03/21/18 01/17/23 History Allergies Allergy/AdvReac Type Severity Reaction Status Date / Time alcohol Allergy Anaphylaxis Verified 01/17/23 13:15 [From Mastisol Liquid Adhesive] gum mastic Allergy Anaphylaxis Verified 01/17/23 13:15 [From Mastisol Liquid Adhesive] methyl salicylate Allergy Anaphylaxis Verified 01/17/23 13:15 [From Mastisol Liquid Adhesive] propofol Allergy Anaphylaxis Verified 01/17/23 13:15 storax Allergy Anaphylaxis Verified 01/17/23 13:15 [From Mastisol Liquid Adhesive] Exam Vital Signs Temp Pulse Resp BP Pulse Ox 01/17/23 13:18 98.3 F 85 17 130/79 98 Intake and Output 01/16/23 01/17/23 01/17/23 22:59 06:59 14:59 Other: Weight 65.317 kg Height 5 feet 5 inches, weight 144 pounds, BMI 24.0. This is a well-developed well-nourished white female who is alert and oriented times 3 in no acute distress. HEENT: Within normal limits. NECK: Supple without mass or thyromegaly. CHEST AND LUNGS: Clear to auscultation. HEART: Regular rate and rhythm. BREASTS: Are without mass or discharge. The breasts are consistent with bilateral reconstruction after mastectomies. The left is consistent with a flap reconstruction and right is consistent with a unilateral implant. AXILLARY EXAM: Negative for adenopathy. BACK: Negative for CVA tenderness. ABDOMEN: Soft, nontender, without palpable masses. PELVIC EXAM: Normal external genitalia with mild to moderate atrophy. Cervix and vagina appear normal with mild to moderate atrophy. There is no unusual discharge. There is no evidence of prolapse. The uterus is midposition, nongravid size and nontender. There are no palpable adnexal masses or tenderness. RECTAL EXAM: Rectovaginal exam is negative for mass or tenderness and is negative for occult blood. EXTREMITIES: Nontender. IMPRESSION: 1. 80-year-old menopausal female with normal gynecologic exam. 2. History of bilateral breast cancers and is status post bilateral mastectomies. There is no evidence of recurrence on exam today. 3. History of osteopenia. PLAN: 1. Pap smear was performed. This will be done every 2-3 years. The patient states her oncologist has recommended that she continue to have cervical screening done because of her history of cancers. 2. Mammograms have been discontinued because of her mastectomies. 3. Osteoporosis prevention was discussed. I have stressed the importance of adequate calcium, vitamin D and regular exercise. Recommended amounts of calcium and vitamin D were also discussed. I have recommended repeating bone density testing in 1 year. She will have this done at her annual well woman examination. 4. Colorectal cancer screening was discussed. She had a negative Cologuard testing in 2020 and is to do it again next year through her PCP. 5. She will continue to follow up with her oncologist on a regular basis because of her history of bilateral breast cancers. 6. She was advised to return in one year for her annual well woman exam.
== END ==
LOC: WWCWWP 13:03
PROVIDERS: ATTEND Obstetrics & Gynecology
DX: Z12.31 Encounter for screening mammogram for malignant neoplasm of breast (principal); Z90.13 Acquired absence of bilateral breasts and nipples; E03.9 Hypothyroidism, unspecified; I10 Essential (primary) hypertension; E78.5 Hyperlipidemia, unspecified; M19.90 Unspecified osteoarthritis, unspecified site; Z85.3 Personal history of malignant neoplasm of breast; Z80.3 Family history of malignant neoplasm of breast; Z79.899 Other long term (current) drug therapy; Z91.048 Other nonmedicinal substance allergy status; Z91.018 Allergy to other foods; Z88.6 Allergy status to analgesic agent; Z88.4 Allergy status to anesthetic agent; Z87.39 Personal history of other diseases of the musculoskeletal system and connective tissue; Z88.9 Allergy status to unspecified drugs, medicaments and biological substances; Z79.890 Hormone replacement therapy

== ENCOUNTER → 2023-08-04 | Outpatient (CLI) | payer MEDICARE ==
--- NOTE | 2023-08-04 12:27 | CT ---
EXAMINATION TYPE: CT sinus wo con DATE OF EXAM: 08/04/2023 COMPARISON: None HISTORY: plugged ears, nausea, light headiness x6 weeks CT DLP: 654.4 mGycm. Automated Exposure Control for Dose Reduction was Utilized. TECHNIQUE: CT scan of the sinuses is performed without contrast, axial images are obtained, coronal r eformatted images are also reviewed. FINDINGS: The right frontal sinus is hypoplastic. There are no air-fluid levels within the paranasal sinuses to suggest acute sinusitis. There are no m ucous retention cysts or polyps. The ostiomeatal complexes are patent. The nasal cavity is intact. The intraorbital contents appear normal and symmetric. There is marked fluid within the left mastoid air cells and middle ear cavity. There is no osseous de struction of the left temporal bone. The right mastoid air cells and middle ear cavity are well aerat ed. IMPRESSION: 1. Hypoplastic right frontal sinus. No evidence of acute or chronic sinusitis. 2. Marked opacification of the left mastoid air cells and middle ear cavity as described above.
== END | disposition home or self-care (01) ==
LOC: RADCTMAIN 08:53
PROVIDERS: ATTEND Family Medicine
DX: H74.8X2 Other specified disorders of left middle ear and mastoid (principal); Q30.1 Agenesis and underdevelopment of nose; R09.81 Nasal congestion; R11.0 Nausea
CPT/HCPCS: 70486

== ENCOUNTER → 2023-11-02 | Outpatient (CLI) | payer MEDICARE ==
[2023-11-02 15:19] LABS: Basophils # (A) 0.07 X 10*3/uL (0.00-0.10); Basophils % (A) 1.1 %; Eosinophils # (A) 0.26 X 10*3/uL (0.04-0.35); Eosinophils % (A) 4.2 %; HCT 44.5 % (37.2-46.3); HGB 14.2 g/dL (12.0-15.0); Lymphocytes # (A) 2.21 X 10*3/uL (0.90-5.00); Lymphocytes % (A) 35.9 %; MCH 30.3 pg (27.0-32.0); MCHC 31.9 g/dL (32.0-37.0); MCV 95.1 FL (80.0-97.0); Mean Platelet Volume 10.8 FL (9.5-12.2); Monocytes # (A) 0.45 X 10*3/uL (0.20-1.00); Monocytes % (A) 7.3 %; NRBC Per 100 WBC 0 X 10*3/uL (0.00-0.01); Neutrophils # (A) 3.15 X 10*3/uL (1.80-7.70); Neutrophils % (A) 51.3 %; Platelet Count 316 X 10*3/uL (140-440); RBC 4.68 X 10*6/uL (4.10-5.20); RDW 13.5 % (11.5-14.5); WBC 6.15 X 10*3/uL (4.50-10.00)
[2023-11-02 15:43] LABS: ALT 21 U/L (8-44); AST 21 U/L (13-35); Albumin 4.5 g/dL (3.8-4.9); Albumin/Globulin Ratio 1.88 Ratio (1.60-3.17); Alkaline Phosphatase 59 U/L (41-126); Bilirubin, Conjugated <0.20 mg/dL (0.20-0.40); Bilirubin,Unconjugated >0.10 mg/dL (0.20-1.00); Blood Urea Nitrogen 24.4 mg/dL (9.0-27.0); Calcium 9.9 mg/dL (8.7-10.3); Carbon Dioxide 26.7 mmol/L (21.6-31.8); Chloride 104 mmol/L (96-109); Globulin 2.4 g/dL (1.6-3.3); Glucose 93 mg/dL (70-110); LDL Cholesterol,Calculated 93.1 mg/dL (0.0-131.0); Potassium 4.9 mmol/L (3.5-5.5); Sodium 142 mmol/L (135-145); T4, Free (Free Thyroxine) 1.45 ng/dL (0.80-1.80); Total Bilirubin 0.3 mg/dL (0.3-1.2); Total Protein 6.9 g/dL (6.2-8.2)
== END | disposition home or self-care (01) ==
LOC: LABWHC1 08:16
PROVIDERS: ATTEND Family Medicine
DX: Z00.00 Encounter for general adult medical examination without abnormal findings (principal); E03.8 Other specified hypothyroidism; E55.9 Vitamin D deficiency, unspecified; G60.9 Hereditary and idiopathic neuropathy, unspecified
CPT/HCPCS: 36415; 80048; 80061; 80076; 82306; 82607; 84439; 84443; 84481; 85025

== ENCOUNTER → 2024-06-06 | Outpatient (CLI) | payer MEDICARE ==
--- NOTE | 2024-06-06 17:04 | BD ---
EXAMINATION TYPE: Axial Bone Density DATE OF EXAM: 06/06/2024 CLINICAL HISTORY: 73 years old Female. ICD-10 CODE: Z78.0 ASYMPTOMATIC MENOPAUSAL STATE , Z78.0 Height: 64.25 Weight: 140.5 FRAX RISK QUESTIONS: Alcohol (3 or more units per day): no Family History (Parent hip fracture): no Glucocorticoids (More than 3mos): no (Ex: prednisone, prednisolone, methylprednisolone, dexamethasone, and hydrocortisone). History of Fracture in Adulthood: no Secondary Osteoporosis: 1. Type 1 Diabetes: no 2. Hyperthyroidism: no 3. Menopause before 45: no 4. Malnutrition: no 5. Chronic liver disease: no Rheumatoid Arthritis: no Current Tobacco Use: no RISK FACTORS HISTORY OF: Hip Fracture (Right/Left): no Spine Fracture: no History of Wrist Fracture: no Surgery to Spine/Hip(right/left)/Wrist (right/left): no MEDICATIONS: Thyroid Medications: Levothyroxine How Long: past 45 years Osteoporosis Medications: no EXAM MEASUREMENTS: Bone mineral densitometry was performed using the [employer] System. Bone mineral density as measured about the Lumbar spine is: ----- L1-L4(G/cm2): 1.266 T Score Values are as follows: ----- L1: -1.0 ----- L2: 0.8 ----- L3: 1.2 ----- L4: 1.3 ----- L1-L4: 0.7 Z Score Values are as follows: ----- L1: 0.7 ----- L2: 2.5 ----- L3: 3.0 ----- L4: 3.0 ----- L1-L4: 2.5 Bone mineral density has: DECREASED -0.2 % since study of: 12/15/2021 Bone mineral density about the R hip (g/cm2): 0.724 Bone mineral density about the L hip (g/cm2): 0.715 T Score values are as follows: -----R Neck: -1.3 -----L Neck: -1.8 -----R Total: -2.3 -----L Total: -2.3 Z Score values are as follows: -----R Neck: 0.5 -----L Neck: 0.0 -----R Total: -0.7 -----L Total: -0.7 Bone mineral density has: DECREASED -6.0 % since study of: 12/15/2021 FRAX%s: The graph provided illustrates a 11.4% chance for a major osteoporotic fx and a 2.3% chance f or the hips probability for fx in 10 years time. IMPRESSION: Osteopenia (T Score between -2.5 and -1). There is slightly increased risk of fracture and the patient may be considered for treatment. Re-Screen 2-5 years. NOTE: T-SCORE=SD OF THE YOUNG ADULT MEAN. [facility], , 06/06/2024 5:02 PM
== END | disposition home or self-care (01) ==
LOC: RADBDWWP 14:51
PROVIDERS: ATTEND Family Medicine
CPT/HCPCS: 77080

== ENCOUNTER → 2024-06-10 | Outpatient (CLI) | payer MEDICARE ==
--- NOTE | 2024-06-10 11:50 | MR ---
EXAMINATION TYPE: MR lumbar spine wo con DATE OF EXAM: 06/10/2024 COMPARISON: NONE CLINICAL INDICATION: Female, 73 years old with history of M47.816,M54.16,M54.50 PHH, Lower back pain, radiates into right buttock/leg. TECHNIQUE: T1 and T2 axial and sagittal images of the lumbar spine are submitted. FINDINGS: There is no abnormal signal seen within the visualized spinal cord or paraspinal soft tissu es. Mild thickening of the left adrenal gland most likely adenoma. Small nerve root sleeve diverticul um T11-T12 bilaterally. At L1-2 there is no degenerative disc disease, disc herniation, or canal stenosis. No foraminal encro achment. At L2-3 there is moderate loss of disc space signal with broad based disc protrusion and mild effacem ent of thecal sac. Hypertrophic facet arthropathy contributes to borderline central stenosis and mild bilateral foraminal encroachment. There is a slight grade 1 retrolisthesis measuring 2 mm L2-L3. At L3-4 there is disc desiccation with hypertrophic facet arthropathy and ligamentum flavum hypertrop hy. No focal disc herniation. Mild broad-based disc bulging but no canal stenosis. Neural foramina wi garo patent. At L4-5 there is moderate degenerative disc disease. There is grade 1 anterolisthesis likely degenera tive in its secondary to severe facet arthropathy. There is moderate left and severe right foraminal encroachment. There is broad-based disc herniation with suspected extrusion of disc material posterio r to the L4 vertebral segment paracentral to the right and may be compressing the right nerve root. R ecommend postcontrast exam for further evaluation. Severe central stenosis. At L5-S1 there is severe degenerative disc disease with broad-based central and left paracentral disc small herniation. Facet arthropathy contributes to moderate bilateral foraminal encroachment. The di sc protrusion or small herniation paracentral to left appears to displace the exiting left nerve root . Correlate for radiculopathy at this level. IMPRESSION: 1. Severe degenerative disc disease with grade 1 anterolisthesis L4-L5. There is a broad-based disc h erniation with suspected extrusion of disc material posterior to the L4 vertebral segment. Extends to [place] the RIGHT lateral recess and suspect there is mass effect upon the nerve root. Correlate for rad iculopathy at this level. Post contrast exam could be obtained as clinically warranted. 2. Broad-based central and left paracentral disc protrusion/small herniation results in bilateral mod erate foraminal encroachment. However, the disc protrusion\herniation paracentral to left appears to displace the exiting LEFT nerve root. Correlate for left-sided radiculopathy at this level. [facility], , 06/10/2024 11:48 AM
== END | disposition home or self-care (01) ==
LOC: RADMRIMAIN 10:54
PROVIDERS: ATTEND Orthopaedic Surgery
DX: M47.26 Other spondylosis with radiculopathy, lumbar region (principal); M51.16 Intervertebral disc disorders with radiculopathy, lumbar region
CPT/HCPCS: 72148

== ENCOUNTER → 2024-09-24 | Outpatient (CLI) | payer MEDICARE ==
[2024-09-24 16:12] LABS: Basophils # (A) 0.06 X 10*3/uL (0.00-0.10); Basophils % (A) 1.2 %; Eosinophils # (A) 0.17 X 10*3/uL (0.04-0.35); Eosinophils % (A) 3.4 %; HCT 45.2 % (37.2-46.3); HGB 14.1 g/dL (12.0-15.0); Lymphocytes # (A) 1.95 X 10*3/uL (0.90-5.00); Lymphocytes % (A) 38.7 %; MCH 29.9 pg (27.0-32.0); MCHC 31.2 g/dL (32.0-37.0); Mean Platelet Volume 11.7 FL (9.5-12.2); Monocytes # (A) 0.47 X 10*3/uL (0.20-1.00); Monocytes % (A) 9.3 %; NRBC Per 100 WBC 0 X 10*3/uL (0.00-0.01); Neutrophils # (A) 2.38 X 10*3/uL (1.80-7.70); Neutrophils % (A) 47.2 %; Platelet Count 310 X 10*3/uL (140-440); RBC 4.71 X 10*6/uL (4.10-5.20); RDW 13.2 % (11.5-14.5); WBC 5.04 X 10*3/uL (4.50-10.00)
[2024-09-24 16:35] LABS: ALT 19 U/L (8-44); AST 20 U/L (13-35); Albumin 4.6 g/dL (3.8-4.9); Albumin/Globulin Ratio 1.84 Ratio (1.60-3.17); Alkaline Phosphatase 66 U/L (41-126); BUN/Creat Ratio 25.82 Ratio (12.00-20.00); Blood Urea Nitrogen 28.4 mg/dL (9.0-27.0); Carbon Dioxide 27.5 mmol/L (21.6-31.8); Chloride 102 mmol/L (96-109); Globulin 2.5 g/dL (1.6-3.3); Glucose 82 mg/dL (70-110); Potassium 5.4 mmol/L (3.5-5.5); Sodium 140 mmol/L (135-145); Total Bilirubin 0.2 mg/dL (0.3-1.2); Total Protein 7.1 g/dL (6.2-8.2)
[2024-09-24 16:36] LABS: INR 0.96 sec (0.93-1.11); Prothrombin Time 10.8 sec (9.9-11.9)
== END | disposition home or self-care (01) ==
LOC: LABWHC1 11:36
PROVIDERS: ATTEND Family Medicine
DX: Z01.812 Encounter for preprocedural laboratory examination (principal); I10 Essential (primary) hypertension; E78.5 Hyperlipidemia, unspecified; E03.9 Hypothyroidism, unspecified
CPT/HCPCS: 36415; 80053; 82306; 85025; 85610

== ENCOUNTER → 2024-10-10 | Outpatient (CLI) | payer MEDICARE | END | disposition home or self-care (01) | LOC: LABPAT 10:03 | PROVIDERS: ATTEND Orthopaedic Surgery | DX: Z01.812 Encounter for preprocedural laboratory examination (principal); M48.061 Spinal stenosis, lumbar region without neurogenic claudication; Z22.322 Carrier or suspected carrier of Methicillin resistant Staphylococcus aureus | CPT/HCPCS: 36415; 86850; 86900; 86901; 87070 ==

== ENCOUNTER 2024-10-18 10:54 | Day surgery (SDC) | payer MEDICARE ==
[~2024-10-18 10:54] MED LIST: HYDROmorphone 0.5 MG/0.5 ML SYRINGE IVP PRN; TRANEXAMIC 1,000 MG/100ML-NACL 1,000 MG in SALINE 1 100ML.BAG IVPB PRN
[2024-10-18] MEDS: IV FLUID CONTINUATION 1,000 ML IV ONE ×3 (11:23)
[2024-10-18] MEDS: GABAPENTIN 300 MG CAP PO PRN (11:51)
[2024-10-18] MEDS: ACETAMINOPHEN TAB 500 MG TAB PO PRN (11:51)
[2024-10-18] MEDS: DEXAMETHASONE SOD PHOSPHATE 4 MG/ML 1 ML VIAL IVP STA (12:00)
[2024-10-18] MEDS: ONDANSETRON 4 MG/2 ML VIAL IVP PRN ×2 (12:00→20:19)
[2024-10-18] MEDS: LACTATED RINGERS 1,000 ML IV SCH (12:01)
--- NOTE | 2024-10-18 12:20 | P.HPOR ---
History of Present Illness H&P Date: 10/18/24 .D:Date: 08/14/24 : 05:47pm .T:Title: NEW PATIENT H1 [facility] [address]| PROVIDER: JAMIE CAMPOS DO CLINICAL SUMMARY: Ms. Reeves, a 73-year-old female, presents with progressive low back pain and leg symptoms that began in October after yard work. Initially managed with hip bursa injections and steroid packs by her PCP, she experienced temporary relief but symptoms recurred. Despite being previously active with Pilates, swimming, and biking, she now has significant functional decline, unable to stand >15 minutes or perform basic household tasks. Imaging reveals L4-5 Grade II spondylolisthesis with severe stenosis and radiculopathy, along with L4-S1 spondylosis and L2-3 degenerative disc disease. Physical exam shows right lower extremity weakness, positive straight leg raise bilaterally, and dermatomal deficits in L4-S1 distribution. Conservative treatments including PT, medications, and epidural injections have failed to provide lasting relief. Given the progressive neurological changes and functional decline, surgical intervention with L4-S1 posterolateral and interbody fusion with decompression has been recommended. DEMOGRAPHICS: Age: 73 year Height: 5'4" Weight: 143 lbs BP:160/92 BMI: 24.60 kg/m2 Occupation: RETIRED CC: LOW BACK PAIN, LEG PAIN, WEAKNESS VAS: 8 HISTORY: Ms. Reeves presents to the office today, 08/16/24, for follow up and recheck of her low back pain and leg issues. Ms. Reeves states back in October of last year that she started having more sx in her low back and legs after doing yard work for a long day. She states she was sore after the yard work, but that over the next few days it became progressive worse to the point where she was having difficulty walking. She went to her PCP who gave her an injection in her hip bursa and started her on steroid pack. This did help her at the time and she was able to go a couple of months without any set backs or issues. Then again, after a couple months she did something that flaired it up and she again had severe back pain, leg pain cramping and difficulty with walking. She agian went to her PCP who gave her a shot and steroid pack. This time she got better but not to the same extent. She then was worked up by a chiropractor and her PCP sent her to PM&R for evaluation and likely shots in her back given some xray findings at the time. She states that she did get the shots and that they helped her at the time. She was also doing therapy through this whole episode which was helpng her and she is very active. She does Pilates daily, strretches daily, walks, and rids bike as well as does swim and other activities. SHe is finding now however, that she cannot do these activities any longer. She states it takes her multiple medications, an hour of warm up and walking just to even get to Pilates let alone do that actual work out. She cannot stand for any extended amount of time >15 min now and she finds it more and more difficult to even do normal household tasks like dishes, vacuuming or taking out trash. She normally goes [facility] summer as well, and these tasks have become a burden to her due to her back and legs and are getting worse with her current treatment not better. She states she is progressively having more RLE pain, weakness, and low back pain. Her low back pain is not as bad as her leg pain at this time but it comes and goes and they switch off intensities depending on the weather, day and activity. She deneis any trauma to the area. She deneis any other sx a this time. She is a healthy 73 yo who is younger than stated age. * Patient denies any f/c/sob/cp, perineal numbness or tingling, bowel, or bladder incontinence/retention. * The patients past social, medical, family, surgical history, as well as review of systems, have been reviewed. Please refer to the History and Physical form that has been scanned into our electronic medical record system. * 16 points review of systems completed and as stated in HPI, all other systems reviewed are negative. PAST TREATMENTS: PAST IMAGING: -YES -XR, MRI TRAUMA RELATED: -NO - WORK RELATED: -NO - PT IN LAST 6 MONTHS: -YES -Several rounds, she does Pilates daily and aqua exercieses without relief PHYSICIAN DIRECTED HOME EXERCISE PROGRAM: -YES -NO improvement ACTIVITY MODIFICAITON: -YES -Cannot do ADLs without significant pain. She cannot do Pilates any longer due to the pain and weakness. MEDICATIONS: -YES -Motrin, Tylenol, Bakari, Lyrica, Medrol, Prednisone all tried. Temporary relief. ALTERNATIVE INTERVENTIONS (CHIROPRACTIC, ACCUPUNCTURE, MASSAGE, RICE): -YES -Chiropractic, did not work. BRACING: -NO - INJECTIONS (EVETTE, TF, RFA): -YES -EVETTE x2. Helped initially but then all sx came back in less than 1 mo MEDICAL HISTORY: Past Medical History: REVIEWED STATED IN CHART Past Surgical History: REVIEWED STATED IN CHART Social History: REVIEWED STATED IN CHART SMOKING: Never smoker ETOH: None SUBSTANCES: None Family History: REVIEWED STATED IN CHART P1 Current Medications: Rx: ACETAMINOPHEN EXTRA STRENGTH 500MG ORAL Tablet, Ref: 11 Instructions: Take 1-2 Tablet ORAL every six hours as needed. Rx: ASPIRIN EC 81MG ORAL Tablet, Ref: 11 Instructions: Take 1 Tablet ORAL daily. Rx: BIOTIN 5000mg ORAL Tablet, Ref: 0 Instructions: Take 1 Tablet ORAL . Rx: CELEBREX 200MG ORAL Tablet, Ref: 11 Instructions: Take 1 Tablet ORAL daily. Rx: CITRACAL PETITES/VITAMIN D calcium 1500mg/[id number] ORAL Tablet, Ref: 0 Instructions: Take 1 Tablet ORAL . Rx: FISH OIL 4000mg ORAL Capsule, Ref: 0 Instructions: Take 1 Capsule ORAL daily. Rx: LEVOXYL 75MCG ORAL Tablet, Ref: 11 Instructions: Take 1 Tablet ORAL DAILY. Rx: MULTIVITAMINS ORAL Tablet, Ref: 11 Instructions: Take 1 Tablet ORAL daily. Rx: TURMERIC 1200mg ORAL Tablet, Ref: 0 Instructions: Take 1 Tablet ORAL daily. Rx: Allergy Ref: 0 Rx: cyclobenzaprine 5 mg tablet Ref: 0 Instructions: take 1 tablet (5 mg) by oral route 3 times per day Rx: lisinopriL 5 mg tablet Ref: 0 Instructions: take 1 tablet (5 mg) by oral route once daily Rx: Sudafed Ref: 0 P1 PHYSICAL EXAM: General: AOX3, NAD, Well hydrate, well nourished HEENT: No lumps or masses Extremities: No color changes, no pooling INTEGUMENT: Appearance: Normal color and turgor Surgical Incisions: NA Hairy Patches: ABSENT Dorsal Skin Dimples: Normal [employer] spots: ABSENT PALPATION: TTP Midline: MILD Paracervical: NO Parathoracic: NO Paralumbar: YES SIJ TESTING (Dennis's, FABER4, Compression, Distraction, Thigh Thrust, Hip Thrust): ALL NEG B/L POSTURAL BALANCE: Coronal: BALANCED Sagittal: BALANCED Shoulder height: LEVEL Pelvic Girdle: LEVEL ROM AND APPEARANCE: Neck: UNRESTRICTED Lumbar: RESTRICTED MILD PAIN Shoulders: Symmetrical Hips: Symmetrical Knees: Symmetrical Hands: Symmetrical Feet: Symmetrical VASCULAR STATUS: PALPABLE PULSES B/L UE AND LE 2/4 RAD/ULNAR/DP/PT Edema: NONE NEUROLOGICAL EXAMINATION: Mental Status: Awake, alert, fully oriented with normal attention, concentration, and memory. Fluent appropriate speech. CRANIAL NERVES: I: Olfactory not assessed. II: Visual acuity normal, no visual field deficit noted with confrontation. III, IV: Normal pupillary reflexes & intact extraocular movements without nystagmus. V, : Intact symmetrical facial sensation. VII: Intact symmetrical facial motor movement: Hearing intact. IX, X: Intact gag, swallow, & normal voice. XI: Sternocleidomastoid, trapezius function intact. XII: Tongue midline with normal movements. TENSIONING: * L'HERMITTE'S SIG:NEG SPURLUNG'S SIGN:NEG UPPER EXTREMITY TENSIONING SIGNS: NEG CUBITAL TUNNEL COMPRESSION:NEG TINELS AT WRIST:NEG STRAIGH LEG RAISE:POS RIGHT CONTRALATERAL STRAIGHT LEG RAISE: POS LEFT MOTOR EXAM (0-5/5, NT) Muscle appearance: Symmetrical, without signs of atrophy or dystrophy UPPER EXTREMITY RIGHT LEFT Shoulder Abduction 5 5 Biceps 5 5 Triceps 5 5 Wrist Extension 5 5 Hand Intrinsics 5 5 Field Services Analyst 5 5 LOWER EXTREMITY RIGHT LEFT Hip Flexion 5 5 Knee Extension 5 5 Knee Flexion 4 5 Dorsiflexion 4 5 Plantarflexion 4 4+ EHL 4 4 FHL 4 4 REFLEXES (0-4/2, NT): RIGHT LEFT Bicep 2 2 Brachioradialis 2 2 Triceps 2 2 Patellar 2 2 Achilles 1 2 PATHOLOGICAL REFLEXES: RIGHT LEFT RODNEY'S ABSENT ABSENT CLONUS ABSENT ABSENT BABINSKI ABSENT ABSENT RECTAL TONE: INTACT/NT SENSATION (0-4, NT): Sensation intact to LT and Pain * C5-T1 distribution BUE * L2-S2 distribution BLE *Exceptions below* DERMATOMAL DEFICIT/RADICULAR PATTERN: L4-S1 RIGHT >LEFT BUT BILATERAL SX GAIT AND FUNCTIONAL EVALUATION: AMBULATORY AID NONE ROMBERG'S TEST INTACT HAND AND FINGER DEXTERITY INTACT YES DYSDIADOCHOKINESIA EXAM NEG B/L YES TOE/HEEL WALK INTACT WITH GOOD BALANCE NO SQUAT AND RISE W/O ASSISTANCE TO 60 DEG KNEE FLEXION NO SINGLE LEG STANCE NOT INTACT [place] NT IMAGING: XRAY Date: 05/30/24 Location: [facility] Region: LUMBAR Views: AP/LAT/FLEX/EXT/AP PELVIS IMAGES ARE REVIEWED WITH THE PATIENT IN OFFICE AND DEMONSTRATE THE FOLLOWING: FINDINGS: * L4-5 UNSTABLE GRADE I SPONDYLOLISTHESIS WITH SEVERE SPONDYLOSIS, DISC HEIGHT COLLAPSE, PAR DEFECT AND ELONGATION. L5-S1 SEVERE SPONDYLOSIS, DISC COLLAPSE, GRADE I RETROLISTHESIS, FACET ARTHROPATHY SEVERE AND OSTEOPHYTE FORMATION WITH VACUUM DISC. L3-4 SPONDYLOSIS WITH MODERATE DISC COLLAPSE. L2-3 SEVERE SPONDYLOSIS WITH DISC COLLAPSE, MODERATE TO SEVERE. L1-2 MILD SPONDYLOSIS. LL DECREASED 45 DEG, BUT IRREGULAR DUE TO SEGMENTAL CHANGES NOTED ABOVE. CT PENDING MRI Date: 06/10/24 Location: [facility] Region: LUMBAR Contrast: N IMAGES ARE REVIEWED WITH THE PATIENT IN OFFICE AND DEMONSTRATE THE FOLLOWING: FINDINGS: BETTER DETAIL OF THE L4-S1 ISSUES. * L4-5 GRADE I UNSTABLE SPONDYLOLISTHESIS WITH SEVERE STENOSIS, LARGE HNP, B/L FORAMINAL STENOSIS THAT IS SEVERE ALONG WITH LATERAL RECESS AND TRANSLATION STENOSIS THAT IS SEVERE CENTRAL AND B/L FORAMINAL. NEAR COMPLETE DISC COLLAPSE AT THIS LEVEL WITH LARGE HNP CAUSING THECAL SAC COMPRESSION, SEVERE, AND STENOSIS. LIGAMENTAL HYPERTRAPHY AND FACET HYPERTROPHY ALONG WITH PARS ELONGATION AND OVERGROWTH CONTRIBUTE TO SETENOSIS. * L5-S1 SEVERE SPONDYLOSIS WITH COMPLETE DISC COLLAPSE, MODRATE HNP WITH B/L FORAMINAL STENOSIS THAT IS SEVERE. LATERAL RECESS STENOSIS THAT IS SEVERE. COMPENSATORY RETROLISTHESIS. FACET HYPTERTROPHY AND ARTHROPATHY CONTRIBUTE TO STENOSIS. LIGAMENTAL HYPERTROPHY. L3-4 MILD SPONDYLOSIS WITHOUT STENOSIS. L2-3 SEVERE DISC COLLPASE AND DEGENERATIVE DISC DISEASE WITH RETROLISTHEISS GRADE I AND HNP WITH MILD STENOSIS B/L FORAMINAL AND CENTRAL. LIGAMENTAL HYPERTROPHY CONTRIBUTES TO STENOSIS. NO FRACTURES NOTED NO LESIONS IMPRESSION: It was my pleasure to have seen and examined Arianna. I reviewed the patient's clinical syndrome, physical findings, and imaging studies during the appointment today. It is my impression that the patient has a diagnosis of. 1.L4-5 GRADE II SPONDYLOLISTHESIS WITH SEVERE STENOSIS AND RADICULOPATHY 2.L4-S1 SPONDYLOSIS, SEVERE WITH STENOSIS AND RADICULOPATHY 3.L2-3 DEGENERATIVE DISC DISEASE 4. BLE RADICULOPATHY 5. LE WEAKNESS 6. LE PARESTHESIAS 7. LOW BACK PAIN, MECHANICAL PLAN: DISCUSSION: -I have discussed with the patient their clinical signs and symtpoms, imaging, and treatment options. We have discussed risks, benefits, potential outcomes and natural course as pertains top their issues. The patient understands and would like to proceed as follows below: SURGICAL RECOMMENDATION/PLAN -L4-S1 POSTEROLATERAL AND INTERBODY FUSION WITH DECOMPRESSION APPROACH: RIGHT, MIS. Discussed open with patient if on the table she does not reduce well enough. OUTPT GETA, 2PIV MORE EVEREST RODS AND SCREWS GLOBUS SABLE CAGES AUTOGRAFT, ALLOGRAFT FOR SPINE SURGERY THERAPIES -CONT WITH THESE ABLE. LIMIT TO WHAT IS TOLERABLE. -Cont. with home exercises and home PT exercises as able -Cont. with Heat/Ice as warranted -Cont. with supplementation Vit D, Vit C, Ca2+, High protein diet -OK for massage or other alternative treatment modalities as able. If it exacerbates your sx do not continue ACTIVITY -OK TO CONTINUE ABLE FOR NOW -NO LIFTING BENDING TWISTING PUSHING PULLING GREATER THAN - -Recommend walking up to 30 min 2x daily on a flat easy surface with good support. MEDICATIONS -CONT CURRENT REGIMENT -Take as directed -Cont. home medications as directed by your PCP. Check with your PCP for any medication interactions or issues if needed. IMAGING -CT SCAN OF THE LUMBAR SPINE FOR SURGICAL PLANNING INJECTIONS -NA Surgical Procedure Risk Review Arianna Reeves is a 73 year old female presenting for evaluation of sudden onset of RLE WEAKNESS, PAIN AND DEBILITY RELATED. LOW BACK PAIN . It was my pleasure to have seen and examined Ms. Reeves. In our visit today we have had a chance to go over subjective complaints, physical examination findings and treatments, including the natural course history without intervention and various interventional options. The imaging demonstrates L4-5 GRADE II UNSTABLE SPONDYLOLISTHESIS WITH L4-S1 SPONDYLOSIS, SEVERE STENOSIS, CENTRAL AND FORAMINAL . On physical exam, Ms. Reeves demonstrates RLE WEAKNESS, RLE PAIN, DEBILITY RELATED TO HER BACK , INABILITY TO DO ADLS, PROGRESSIVE NEUROLOGICAL CHANGES DUE TO HER STENOSIS I explained to the patient that as her condition progresses it could cause CONTINUED AND PROGRESSIVE CHANGES, PAIN, DEBILITY WEAKNESS AND FURTHER ISSUES . At this time, based on the patients imaging and physical exam, I recommend surgery in the form or a: L4-S1 POSTEROLATERAL AND INTERBODY FUSION WITH DECOMPRESSION . I discussed the risk and benefits of this procedure at length with Ms. Reeves. The patient agreed to consider pursuing the procedure mentioned above. Plan: 1. L4-S1 POSTEROLATERAL AND INTERBODY FUSION WITH DECOMPRESSION 2. Follow up with PCP for surgical clearance 3. Review of surgical risks and benefits as well as an educational packet on the proposed surgical procedure. 4. CT SCAN FOR SURGICAL PLANNIG LUMBAR W/O Risks: All surgical procedures come with inherent risks, including those related to positioning, anesthesia, intraoperative findings, and postoperative complications. It is important to understand that surgery does not come with any guarantee of a successful outcome as complications and adverse events are always possible. The patient was given a handout in office today discussing the surgical procedure and risks associated with the intervention, both of which were discussed with the patient. These risks include but are not limited to the following: ? Experiencing same, different or even worse symptoms in back, neck, arms, or legs compared to before surgery. ? Requiring further surgery or other forms of treatment presently or at some time in the future at same or other levels of the intended spine surgery. ? On an extreme but fortunately relatively rare basis severe complication such as blindness, stroke, heart attack, temporary and/or permanent nerve injury, paralysis, coma, or may occur, sometimes without known explanation. ? Surgical complications may include but are not limited to risk of infection, fluid accumulation in the surgical dissection site, including a seroma or hematoma, that requires additional surgery, wound drainage, bleeding, new numbness or weakness, vision changes/loss, spinal fluid leakage, non-healing and/or infected incision, headaches, difficulty or inability to swallow, hoarseness, hemopneumothorax, pneumothorax, impotence, retrograde ejaculation, vaginal dryness; injury to nerves, spinal cord, blood vessels, lymphatics or other vital organs (i.e., bowel injury, injury to the great vessels); heterotopic bone formation; complications related to the hardware such as screws, rods, cages including misplaced hardware, device failure, instrumentation at the wrong spine level, hardware fracture/breakage, or hardware loosening; vertebral failure of the spinal column above or below the ne wly placed hardware; retained surgical instrumentations or devices and the need for further surgery. ? Medical risks of the planned spine surgery include but are not limited to generalized Infections to the whole body or local areas outside of the surgical site (sepsis), heart attack, bleeding, anaphylaxis, meningitis, seizure, epilepsy, hearing loss, burn leiva, laceration of the head or other areas of the body, bruising, hypersensitivity of the skin, bladder over distension; allergic reaction; shoulder injury related to positioning; fat, blood and air clots to other areas of the body like heart, lungs, brain; failure of internal organs such as lungs, kidneys, liver and excessive bleeding. If blood transfusions are necessary, note that transfusions may cause intolerance reactions such as anaphylaxis or other complex reactions. Despite best efforts, the results of spine surgery might not heal in terms of bone, soft tissues such as skin, fascia, ligaments, and joints. Additionally, in order to achieve best possible results, spine surgery may be carried out beyond the initially planned levels and involve decompression, fusion including insertion of hardware at levels other than the original intended area of surgical interest change some portions of the procedure in order to ensure the best possible outcomes. With spine surgery and spinal fusion, there are different off label uses of instrumentation (devices, implants and hardware) as well as biological substances (bone morphogenic proteins, demineralized bone matrix) as well as using extra bone from allograft sources (i.e. cadaver bone) or autograft (iliac crest bone, ribs, or the spine itself). The patient has been given information about these practices and their inherent risks and benefits. Vaishali Srinivasan Physician Assistants are medically trained surgical providers who function in the outpatient, inpatient, and operating room setting under the direct supervision of the attending surgeon.They assist in the operating room with direct supervision of the attending surgeons. The patient has had a chance to review all the listed information, has been given print outs detailing this information, and has had all his/her questions answered to their satisfaction. It was my pleasure to have seen and examined Ms. Reeves. In our visit today we have had a chance to go over my understanding of our patient's current condition, the natural course history without intervention and various interventional options. Questions were invited and answered, and the patient wishes to proceed as outlined above. I have seen and examined the patient for 25 minutes and we have spent more than 50% of the time in repeat and detailed counseling about the patient's condition, its natural course history with out and as much as can be predicted with surgery and re-review of various surgical treatment options. In conclusion,Ms. Reeves and her spouse/partner requested we proceed with the above suggested surgery and are willing to accept risks and limitations of the suggested surgery as nature of the disease process and our best attempts at treatment for the condition. MEDICAL NECESSITY: Medical necessity for surgical intervention is strongly supported by multiple objective clinical findings and documented progression of symptoms in Ms. Reeves's case. The patient presents with Grade II spondylolisthesis at L4-5 accompanied by severe central and foraminal stenosis, causing significant neural compression and progressive neurological deficits. Objective findings include positive straight leg raise testing bilaterally, documented right lower extremity weakness, and clear dermatomal deficits in the L4-S1 distribution. The patient has experienced a marked decline in functional status, progressing from an active lifestyle including Pilates, swimming, and biking to being unable to stand for more than 15 minutes or perform basic household activities. Conservative management has been exhaustively attempted, including physical therapy, medications, and epidural injections, all of which have failed to provide sustainable relief. The patient's symptoms began in October following yard work and have shown consistent progression despite appropriate conservative care. The presence of mechanical instability, combined with progressive neurological compromise and failed conservative management, creates a clear indication for surgical intervention. The recommended L4-S1 posterolateral and interbody fusion with decompression is medically necessary to address both the structural instability and neurological compression, with goals of preventing further neurological deterioration, stabilizing the affected spinal segments, and improving the patient's quality of life. The timing of surgical intervention is particularly critical given the documented progression of symptoms and the risk of permanent neurological damage if left untreated. SURGICAL RATIONAL: The surgical plan for L4-S1 posterolateral and interbody fusion with decompression is specifically tailored to address Ms. Reeves's complex spinal pathology. The procedure will accomplish several critical objectives: 1) Decompress the neural elements to alleviate radicular symptoms and prevent further neurological deterioration, 2) Stabilize the Grade II spondylolisthesis at L4-5 to prevent further progression and associated neurological compromise, 3) Restore proper sagittal alignment and neural foraminal height through interbody fusion techniques, and 4) Address the multilevel degenerative changes from L4-S1 that are contributing to her functional decline. The posterolateral fusion component will provide essential posterior column stability, while the interbody fusion will support anterior column load sharing and maintain foraminal height. This comprehensive surgical approach is necessary given the patient's progressive neurological deficits, failed conservative management, and documented mechanical instability. The procedure's goals align with addressing both the anatomical pathology and functional impairment, with the ultimate aim of improving her quality of life and preventing further neurological deterioration. FOLLOW UP: POST OP PLAN AT NEXT VISIT: PRE OP ASSESSMENT/ RECKECK PATIENT EDUCATION: Medications Reviewed: YES In our visit today Ms. Reeves and I have had a chance to go over my understanding of the patient's current condition, the natural course history without intervention and various interventional options. Questions were invited and answered, and the patient wishes to proceed as outlined above. I will be sure to keep you updated after Ms. Reeves returns here for further follow-up. Thank you again for your referral. Please do not hesitate to contact me if you have any further questions. Signed and authenticated by: Jamie Villegas [facility] [address] [place] [address] . This message is confidential, intended only for the named recipient(s) and may contain information that is privileged or exempt from disclosure under applicable law. If you are not the intended recipient(s), you are notified that the dissemination, distribution or copying of this information is prohibited. If you received this message in error, please notify the sender then delete this message. # SIGNED BY Jamie Campos (GOO)08/16/2024 06:54AM Past Medical History Past Medical History: Cancer, Hyperlipidemia, Hypertension, Osteoarthritis (OA), Thyroid Disorder Additional Past Medical History / Comment(s): BREAST CANCER (left 2003, right 2015). DRY EYES. Insomnia. Hypothyroidism, seasonal ALLERGIES, and osteopenia. recent tx for water in right ear pt tx with steroids. pt states Dr Campos is aware. following up with ENT 10/17/24 History of Any Multi-Drug Resistant Organisms: None Reported Past Surgical History: Breast Surgery, Orthopedic Surgery Additional Past Surgical History / Comment(s): bilat MASTECTOMY(Left 2003, right 2015). Left breast flap for reconstruction and right breast implant. TMJ - wired mouth shut [facility] 80's. SEVERAL SURGERIES ON FEET FOR PLANTAR FASCIATIS. ACHILLES TENDON REPAIR. D & C. Colonoscopy 2009(more recent Cologard testing). Past Anesthesia/Blood Transfusion Reactions: Previous Problems w/ Anesthesia, Postoperative Nausea & Vomiting (PONV) Additional Past Anesthesia/Blood Transfusion Reaction / Comment(s): FIRST REACTION TO PROPOFOL WAS rash traveling UP THE ARM WHERE IV HAD BEEN STARTED. SECOND REACTION, ANAPHYLASIS. Smoking Status: Never smoker - Past Family History Father Family Medical History: Cancer Additional Family Medical History / Comment(s): BRAIN cancer. Mother Family Medical History: Hypertension Additional Family Medical History / Comment(s): She denies family history of cancer of the breast, uterus, ovaries, or colon. Medications and Allergies Home Medications Medication Instructions Recorded Confirmed Type Aspirin 81 mg PO DAILY 12/05/14 10/18/24 History Biotin 5 mg PO DAILY 12/05/14 10/18/24 History Celecoxib [CeleBREX] 200 mg PO BID 12/05/14 10/18/24 History Levothyroxine Sodium [Synthroid] 75 mcg PO QAM 12/05/14 10/18/24 History Vernon-3 Fatty Acids/Fish Oil [Fish 1 cap PO BID 12/05/14 10/18/24 History Oil 1,000 mg Softgel] Pseudoephedrine [Sudafed] 120 mg PO QA 12/05/14 10/18/24 History Simvastatin [Zocor] 10 mg PO HS 12/05/14 10/18/24 History Triamcinolone Acetonide [Nasacort] 1 spray [facility] 12/05/14 10/18/24 History Vitamin E (Dl,Tocopheryl Acet) 400 unit PO DAILY 12/05/14 10/18/24 History [Vitamin E (400 Iu = 180 mg)] cycloSPORINE [Restasis] 1 drop BOTH EYES BID 12/05/14 10/18/24 History Acetaminophen Tab [Tylenol Tab] 1,000 mg PO QID 03/21/18 10/18/24 History Turmeric Root Extract [Turmeric] 1,000 mg PO DAILY 03/21/18 10/18/24 History lisinopriL [Zestril] 5 mg PO DAILY 03/21/18 10/18/24 History Calcium 1000mg 1,000 mg PO DAILY 10/15/24 10/18/24 History Cholecalciferol (Vitamin D3) 1,250 mcg PO HOWE 10/15/24 10/18/24 History [Vitamin D3 (1250 Mcg = 50,000 Iu)] Loratadine [Claritin] 10 mg PO DAILY 10/15/24 10/18/24 History Allergies Allergy/AdvReac Type Severity Reaction Status Date / Time alcohol Allergy Severe red skin, Verified 10/18/24 11:35 [From Mastisol Liquid very Adhesive] itching gum mastic Allergy Severe red skin Verified 10/18/24 11:35 [From Mastisol Liquid and itching Adhesive] methyl salicylate Allergy Severe red skin Verified 10/18/24 11:35 [From Mastisol Liquid and itching Adhesive] storax Allergy Severe red skin Verified 10/18/24 11:35 [From Mastisol Liquid and itching Adhesive] propofol Allergy Anaphylaxis Verified 10/18/24 11:35 Physical Examination Osteopathic Statement: *. No significant issues noted on an osteopathic structural exam other than those noted in the History and Physical/Consult.
[2024-10-18] MEDS: SCOPOLAMINE 1 MG/72 HR PATCH TRANSDERM STA (12:21)
[2024-10-18] MEDS ORDERED: MIDAZOLAM 2 MG/2 ML VIAL ONE (12:50)
[2024-10-18] MEDS ORDERED: TRANEXAMIC 1,000 MG/100ML-NACL PREMIX BAG ONE (12:50)
[2024-10-18] MEDS ORDERED: VASOPRESSIN 20 UNIT/ML 1 ML VIAL ONE (12:50)
[2024-10-18] MEDS ORDERED: fentaNYL (PF) 50 MCG/ML 2 ML AMP ONE (12:50)
[2024-10-18] MEDS ORDERED: ETOMIDATE 2 MG/ML 10 ML VIAL ONE (12:50)
[2024-10-18] MEDS ORDERED: DEXAMETHASONE SOD PHOSPHATE 10 MG/ML 1 ML VIAL ONE (12:50)
[2024-10-18] MEDS ORDERED: WATER FOR INJECTION, STERILE 10 ML VIAL IV ONE (12:50)
[2024-10-18] MEDS ORDERED: GLYCOPYRROLATE 0.2 MG/ML 2 ML VIAL ONE (12:50)
[2024-10-18] MEDS ORDERED: LIDOCAINE 1% INJ 10MG/ML (20 ML MDV) ONE (12:50)
[2024-10-18] MEDS ORDERED: diphenhydrAMINE 50 MG/ML 1 ML VIAL ONE (12:50)
[2024-10-18] MEDS ORDERED: CALCIUM CHLORIDE 100 MG/ML 10 ML SYRINGE ONE (12:50)
[2024-10-18] MEDS ORDERED: ROCURONIUM 10 MG/ML (5 ML VIAL) IV ONE (12:50)
[2024-10-18] MEDS ORDERED: SUCCINYLCHOLINE CHLORIDE 200 MG/10 ML VIAL IV ONE (12:50)
[2024-10-18] MEDS ORDERED: KETAMINE HCL IN 0.9 % NACL 50 MG/5 ML SYRINGE ONE (12:50)
[2024-10-18] MEDS ORDERED: ePHEDrine 50 MG/ML 1 ML VIAL ONE (12:50)
[2024-10-18] MEDS ORDERED: PHENYLEPHRINE 10 MG/ML VIAL ONE (12:50)
[2024-10-18] MEDS: BUPIVACAINE (PF) 0.5% 30 ML VIAL SQ ONE ×2 (13:30)
[2024-10-18] MEDS: LIDOCAINE 2%-EPI 1:100,000 20 ML VIAL SQ ONE ×2 (13:30)
[2024-10-18] MEDS: THROMBIN (BOVINE) 5,000 UNIT VIAL MISCELLANE ONE (13:38)
[2024-10-18] MEDS ORDERED: TRANEXAMIC 1,000 MG/100ML-NACL 1,000 MG in SALINE 1 100ML.BAG IVPB SCH (14:30)
[2024-10-18] MEDS ORDERED: HYDROmorphone 0.5 MG/0.5 ML SYRINGE IVP PRN (16:28)
[2024-10-18] MEDS ORDERED: MAG HYDROX/AL HYDROX/SIMETH 30 ML CUP PO PRN (16:28)
[2024-10-18] MEDS ORDERED: NA PHOS,M-B/NA PHOS,DI-BA 133 ML ENEMA RECTAL PRN (16:28)
[2024-10-18] MEDS ORDERED: bisacodyL 10 MG SUPP RECTAL PRN (16:28)
[2024-10-18] MEDS ORDERED: HYDROcodone/APAP 10-325MG 1 EACH TAB PO PRN (16:28)
[2024-10-18] MEDS ORDERED: HYDROmorphone 1 MG/ML 1 ML SYRINGE IVP PRN (16:28)
[2024-10-18] MEDS ORDERED: CYCLOBENZAPRINE 5 MG TAB PO PRN (16:28)
[2024-10-18] MEDS ORDERED: MAGNESIUM HYDROXIDE 2,400 MG/30 ML CUP PO PRN (16:28)
[2024-10-18] MEDS ORDERED: HYDROcodone/APAP 7.5-325MG 1 EACH TAB PO PRN (16:31)
--- NOTE | 2024-10-18 16:38 | XR ---
EXAMINATION TYPE: XR lumbar spine 2 or 3V, FL guidance operating room Intraoperative/procedural fluor oscopic services were provided. CLINICAL INDICATION:Female, 74 years old with history of LUMBAR STENOSIS SPONDYLOSIS WITH RADICULOPAT HY; , PHH FINDINGS: Multiple fluoroscopic images demonstrating L4-S1 posterior disc fusion with disc spacers. Hardware ap pears intact with appropriate alignment on the submitted images. No radiographic evidence for complic ation. Total fluoroscopy time is 1.15 min. DAP: 1245.19 cGycm2 Please see the operative/procedural note for further details. [facility], , 10/18/2024 4:35 PM
[2024-10-18] MEDS: TRANEXAMIC 1,000 MG/100ML-NACL 1,000 MG in SALINE 1 100ML.BAG IVPB ONE (18:17)
[2024-10-18] MEDS: KETOROLAC 15 MG/ML 1 ML VIAL IVP SCH (18:23)
[2024-10-18] MEDS: ACETAMINOPHEN TAB 325 MG TAB PO SCH (18:24)
[2024-10-18] MEDS: HYDROcodone/APAP 5-325MG 1 EACH TAB PO PRN (20:18)
[2024-10-18] MEDS: GABAPENTIN 100 MG CAP PO SCH (20:18)
--- NOTE | 2024-10-19 07:38 | CT ---
EXAMINATION TYPE: CT lumbar spine wo con CT DLP: 702.6 mGycm, Automated exposure control for dose reduction was used. DATE OF EXAM: 10/19/2024 7:05 AM COMPARISON: Lumbar fluoroscopic images 10/18/2024, MRI lumbar spine 06/10/2024. CLINICAL INDICATION:Female, 74 years old with history of s/p lumbar fusion; PHH, s/p lumbar fusion, p ain TECHNIQUE: Multiple axial images were obtained from the midportion of T11 through the sacroiliac judy nts. Soft tissue and bone windows in coronal and sagittal planes were obtained and reviewed. Contrast used: none. Oral contrast used: none. FINDINGS: Postsurgical changes to the lumbar spine with fixation hardware at L4, L5 and S1. Disc spacers at L4- L5 and L5-S1. Right-sided laminectomy change at L3 and L4. Hardware limits evaluation at these levels . Hardware appears intact. The right L5 pedicular screw extends near the L4 vertebral body superior e ndplate. No evidence of fracture. Fixed minimal grade 1 anterolisthesis of L4 on L5. Postsurgical changes in the soft tissues with foci of gas present. Posterior back skin guille are pr esent. Disc space narrowing with endplate sclerosis and anterior osteophytosis at L2-L3. There is a broad-ba sed disc bulge with ligamentum flavum buckling at this level resulting in at least mild central canal stenosis. Bilateral facet arthropathy at this level with mild bilateral neural foraminal stenosis. Bilateral lower lobe dependent subsegmental atelectasis. There is some fat stranding along the right iliopsoas muscle. IMPRESSION: Postsurgical changes without evidence of immediate post operative complication. [facility], , 10/19/2024 7:36 AM
[2024-10-19 08:04] VITALS: RESP 18
[2024-10-19] MEDS: polyethylene glycoL 3350 17 GM POWD.PACK PO SCH (09:05)
[2024-10-19] MEDS: SENNOSIDES-DOCUSATE SODIUM 1 EACH TAB PO SCH (09:05)
[2024-10-19 09:24] LABS: Basophils # (A) 0.03 X 10*3/uL (0.00-0.10); Basophils % (A) 0.2 %; Eosinophils # (A) 0 X 10*3/uL (0.04-0.35); Eosinophils % (A) 0 %; HCT 31.8 % (37.2-46.3); HGB 10.5 g/dL (12.0-15.0); Lymphocytes # (A) 0.91 X 10*3/uL (0.90-5.00); Lymphocytes % (A) 4.9 %; MCH 30.8 pg (27.0-32.0); MCV 93.3 FL (80.0-97.0); Monocytes # (A) 0.97 X 10*3/uL (0.20-1.00); Monocytes % (A) 5.3 %; NRBC Per 100 WBC 0 X 10*3/uL (0.00-0.01); Neutrophils % (A) 89.1 %; Platelet Count 232 X 10*3/uL (140-440); RBC 3.41 X 10*6/uL (4.10-5.20); WBC 18.41 X 10*3/uL (4.50-10.00)
[2024-10-19 09:28] LABS: BUN/Creat Ratio 20.62 Ratio (12.00-20.00); Blood Urea Nitrogen 16.5 mg/dL (9.0-27.0); Calcium 8.6 mg/dL (8.7-10.3); Chloride 101 mmol/L (96-109); Glucose 109 mg/dL (70-110); Potassium 4.6 mmol/L (3.5-5.5); Sodium 135 mmol/L (135-145)
--- NOTE | 2024-10-19 11:16 | P.OP ---
Date of Procedure: 10/18/24 Preoperative Diagnosis: 1.L4-5 GRADE II SPONDYLOLISTHESIS WITH SEVERE STENOSIS AND RADICULOPATHY 2.L4-S1 SPONDYLOSIS, SEVERE WITH STENOSIS AND RADICULOPATHY 3.L2-3 DEGENERATIVE DISC DISEASE 4. BLE RADICULOPATHY 5. LE WEAKNESS 6. LE PARESTHESIAS 7. LOW BACK PAIN, MECHANICAL Postoperative Diagnosis: 1.L4-5 GRADE II SPONDYLOLISTHESIS WITH SEVERE STENOSIS AND RADICULOPATHY 2.L4-S1 SPONDYLOSIS, SEVERE WITH STENOSIS AND RADICULOPATHY 3.L2-3 DEGENERATIVE DISC DISEASE 4. BLE RADICULOPATHY 5. LE WEAKNESS 6. LE PARESTHESIAS 7. LOW BACK PAIN, MECHANICAL Procedure(s) Performed: 1. L5-S1 INTRADISCAL OSTEOTOMY, 3 COLUMN, FOR DEFORMITY CORRECTION 2. L4-5 INTRADISCAL OSTEOTOMY, 3 COLUMN, FOR DEFORMITY CORRECTION 3. L5-S1 POSTEROLATERAL AND INTERBODY FUSION 4. L4-5 POSTEROLATERAL AND INTERBODY FUSION 5. L4-S1 POSTEROLATERAL SEGMENTAL INSTRUMENTATION 6. L4-5 AND L5-S1 LAMINECTOMY , FACETECTOMY, FORAMINOTOMY FOR COMPLETE NEURAL DECOMPRESSION, DEFORMITY CORRECTION AND CAGE PLACEMENT 7. INSERTION OF BIOMECHANICAL DEVICES, CAGES x2, L4-5 AND L5-S1 8. USE OF [employer] NAVIGATION FOR PLACEMENT OF SCREWS USE OF IONM ALL SCREWS TESTING > 20 mA USE OF IO MICROSCOPE NOTES: RIGHT SCAR+++ BONE+++ REDUCTION ++ Implants: -MORE EVEREST RODS AND SCREWS -GLOBUS SABLE CAGES X2; MEDIUM 8 DEG, 9-16, 10 mm; MEDIUM 15 DEG 7-14, 10 mm -ARTHROCELL, ALLOCELL, CONTOUR, AUTOGRAFT, MAGNATOS EASYPAK Anesthesia: GEETA Surgeon: Isiah Sotomayor [employer] Drying Machine Operator #1: Darvin Segura (WAS PRESENT AND ASSISTED WITH ALL ASPECTS OF THE CASE FROM POSITION TO DRESSING PLACEMENT) Estimated Blood Loss (ml): 75 IV fluids (ml): 1,200 Urine output (ml): 250 Pathology: none sent Condition: stable Disposition: PACU Indications for Procedure: Ms. Reeves, a 73-year-old female, presents with progressive low back pain and leg symptoms that began in October after yard work. Initially managed with hip bursa injections and steroid packs by her PCP, she experienced temporary relief but symptoms recurred. Despite being previously active with Pilates, swimming, and biking, she now has significant functional decline, unable to stand >15 minutes or perform basic household tasks. Imaging reveals L4-5 Grade II spondylolisthesis with severe stenosis and radiculopathy, along with L4-S1 spondylosis and L2-3 degenerative disc disease. Physical exam shows right lower extremity weakness, positive straight leg raise bilaterally, and dermatomal deficits in L4-S1 distribution. Conservative treatments including PT, medications, and epidural injections have failed to provide lasting relief. Given the progressive neurological changes and functional decline, surgical intervention with L4-S1 posterolateral and interbody fusion with decompression has been recommended. Description of Procedure: L4-S1 MIS PLIBF, SONDRA (STARLA) The patient was seen and examined in the preoperative area. All preoperative protocols were followed. Informed consent was obtained, risks and benefits of the procedure were discussed at length. Risks including bleeding infection damage to the surrounding tissue and risk of reoperation were discussed with the patient. Risk of anesthesia up to and including was discussed with the patient. These are outlined in the risk review. They were willing to accept these risks and all the risks of surgery. The patient was given a weight-based dose of antibiotics in the form of 2 g Ancef. The patient was seen and evaluated by the anesthesia team who deemed them fit for surgery. The site was marked, the patient was willing to proceed with the procedure. The patient was transferred to the operative suite by the Department of anesthesia. They were then drifted off to sleep by the department anesthesia and GETA was performed. The patient tolerated this well. García catheter was placed by nursing staff, a-traumatically. Once confirmation of lines and ventilation the patient was transferred to a prone Jose table very carefully. All bony prominences including wrists, elbows, axilla, chest, hips, and thighs, and feet were padded very well. Special attention was paid to the genitalia, and these were padded accordingly. SCDs were placed on bilateral lower extremities and were connected. Arms were well padded and placed on arm boards up and out in the 90/90 position. Once in position, again we confirmed good ventilation capabilities and that lines were running appropriately. The patients Lumbar spine was then exposed. 1010s were placed outlining the incision site. Standard alcohol was used to clean the incision site and allowed to dry. C-arm was used to needle localize the pedicles at L4-S1 and bio-sharmin the patient and confirm level for incision which was marked with a skin marker. Operative briefing was performed with all teams and everyone in agreement to proceed. The patient was then prepped and draped in a normal sterile fashion. Timeout was then performed, and all parties agreed with the procedure to be performed. Skin nicks were made over the PSIS to place pins for the tracking system for [employer]. Once pins had been placed and tracker registered a 3D Ziehm spin was obtained and registered. Once it was confirmed to be accurate, Navigated Jamshidi was used to plan screws from L4-S1 bilaterally. Once these were planned, skin incisions were made paramedian and a high speed navigated belkys was used to create company pilot holes in the optimal starting points for screws L4-S1 bilateral. Then, the belkys was used to decorticate the TPs PL and the facet joints using navigation. Then Navigated Jamshidi was introduced into the corridor which allowed for placement of wires. Wires were then visualized on AP and Lateral and were in good position. Right sided screws were then placed over wires removing the wire once the screw was at the back of the body and advancing to optimal position and purchase. Once screws were placed they were confirmed to be in good position using AP and Lateral fluoroscopy. Screws were tested and all tested above 20 mA. We then proceeded to decompression and cage placement. Attention was then turned to interbody fusion at L5-S1 and osteotomy for deformity correction. There was exuberant scar and osteophyte formation, deformity due to b/l pars defects and cystic formation around the neural elements. Sequential dilation was done for the tubular retractor system using navigation and Xray. The tube was placed and secured into position with a table arm. A microscope was then brought in for visualization. Laminectomy, complete facetectomy and foraminotomy performed at L5-S1 using high speed belkys and Kerrison rongeur. The ligamentum was removed and the dural sac decompressed. Exiting and traversing roots visualized and decompressed. Neural elements were then protected, and disc space accessed with an osteotome. Intradiscal, 3 column osteotomy, was performed under fluoroscopic guidance using an osteotome to remove the entire disc. Sequential shaving then done under lateral imaging and complete discectomy performed using shreya, pituitary and curette. Once good bleeding endplates accomplished and good height mandaeism with trials, a combination of autograft, allograft and synthetic placed anterior in the disc space. The cage was then selected and impacted into place under lateral imaging restoring height, lordosis and alignment. The cage was backfilled with bone graft through a funnel. The lunchroom operator was removed and the area inspected. Good cage placement, stable cage and no injuries. The area was irrigated copiously, and meticulous hemostasis achieved. The tubular retractor was then removed under direct visualization and attention turned to L4-5. Attention was then turned to interbody fusion at L4-5. Again the tubular retractor was placed as described above. Laminectomy, complete facetectomy and foraminotomy performed at L4-5 using high speed belkys and Kerrison rongeur. The ligamentum was removed and the dural sac decompressed. Exiting and traversing roots visualized and decompressed. Neural elements were then protected, and disc space accessed with an osteotome. Intradiscal, 3 column osteotomy, was performed under fluoroscopic guidance using an osteotome to remove the entire disc and for deformity correction. This level was extremely sclerotic and difficult to mobilize, but once osteotomy was done there was good mobilization and height mandaeism had started. Sequential shaving then done under lateral imaging and complete discectomy performed using shreya, pituitary and curette. Once good bleeding endplates accomplished and good height mandaeism with trials, a combination of autograft, allograft and synthetic placed anterior in the disc space. The cage was then selected and impacted into place under lateral imaging restoring height, lordosis and alignment. The cage was backfilled with bone graft through a funnel. The lunchroom operator was removed and the area inspected. Good cage placement, stable cage and no injuries. Area was irrigated copiously, and meticulous hemostasis achieved. The wound and disc spaces were irrigated and meticulous hemostasis achieved. Rods were then sized and selected and placed subfacially into S1 screws b/l. Set screws locked these in place and then sequentially reduced into L4 and L5 b/l for alignment mandaeism. This was accomplished. Set screws were then all placed and finally tightened. The wound was irrigated copiously with NSS. Autograft and MagnatOs then placed in the posterolateral gutters and impacted into place. Final images confirmed good placement of hardware and good reduction of listhesis as well as mandaeism of height and lordosis. Fascia was then closed with 0 Vicryl; Deep subq closed with 0 Vicryl; Superficial subq closed with 2-0 Vicryl and skin with 2-0 nylon in running fashion. Wound edges approximated very well. Wound was then cleaned with alcohol and dried. Wounds dressed with adaptic, 4x4 and tegaderm. The patient was then transferred off the table back to their hospital bed a- traumatically. They were extubated by the department of anesthesia. They were then transferred to PACU in stable condition having tolerated the procedure with no complications.
[2024-10-19 11:35] LABS: Basophils % (A) 0 %; Eosinophils # (A) 0.1 k/uL (0-0.7); Eosinophils % (A) 1 %; HCT 39.2 % (34.0-46.0); HGB 12.2 gm/dL (11.4-16.0); Lymphocytes # (A) 1.6 k/uL (1.0-4.8); Lymphocytes % (A) 8 %; MCH 30.2 pg (25.0-35.0); MCHC 31.2 g/dL (31.0-37.0); MCV 96.9 fL (80.0-100.0); Monocytes # (A) 0.8 k/uL (0-1.0); Monocytes % (A) 4 %; Neutrophils # (A) 16.8 k/uL (1.3-7.7); Neutrophils % (A) 86 %; Platelet Count 247 k/uL (150-450); RBC 4.05 m/uL (3.80-5.40); RDW 13.2 % (11.5-15.5); WBC 19.5 k/uL (3.8-10.6)
--- NOTE | 2024-10-19 13:57 | P.CONS ---
History of Present Illness - Reason for Consult Consult date: 10/19/24 Medical management - Chief Complaint Back pain - History of Present Illness 74-year-old female patient with history of grade 2 spondylolisthesis L4-S1 with severe spinal stenosis and radiculopathy, degenerative disc disease, bilateral lower extremity radiculopathy/weakness and paresthesias, admitted to the hospital for elective surgery. Patient presented with progressive low back pain and leg symptoms that began in October after yard work. Initially managed with hip bursa injections and steroid packs by her PCP, she experienced temporary relief but symptoms recurred. Despite being previously active with Pilates, swimming, and biking, she developed significant functional decline, unable to stand >15 minutes or perform basic household tasks. Imaging reveals L4-5 Grade II spondylolisthesis with severe stenosis and radiculopathy, along with L4-S1 spondylosis and L2-3 degenerative disc disease. Physical exam shows right lower extremity weakness, positive straight leg raise bilaterally, and dermatomal deficits in L4-S1 distribution. Conservative treatments including PT, medications, and epidural injections have failed to provide lasting relief. Given the progressive neurological changes and functional decline, surgical intervention with L4-S1 posterolateral and interbody fusion with decompression has been recommended. Blood work reveals a WBC of 18.41, hemoglobin of 10.5 and platelet count of 232, sodium 135, potassium 4.6, BUNs/creatinine 16.5/0.8 CT scan reveals L4-5 Grade II spondylolisthesis with severe stenosis and radiculopathy, along with L4-S1 spondylosis and L2-3 degenerative disc disease. Review of Systems REVIEW OF SYSTEMS: CONSTITUTIONAL: No fever, no malaise, no fatigue. HEENT: No recent visual problems or hearing problems. Denied any sore throat. CARDIOVASCULAR: No chest pain, orthopnea, PND, no palpitations, no syncope. PULMONARY: No shortness of breath, no cough, no hemoptysis. GASTROINTESTINAL: No diarrhea, no nausea, no vomiting, no abdominal pain. NEUROLOGICAL: No headaches, no weakness, no numbness. HEMATOLOGICAL: Denies any bleeding or petechiae. GENITOURINARY: Denies any burning micturition, frequency, or urgency. MUSCULOSKELETAL/RHEUMATOLOGICAL: Denies any joint pain, swelling, or any muscle pain. ENDOCRINE: Denies any polyuria or polydipsia. The rest of the 14-point review of systems is negative. Past Medical History Past Medical History: Cancer, Hyperlipidemia, Hypertension, Osteoarthritis (OA), Thyroid Disorder Additional Past Medical History / Comment(s): BREAST CANCER (left 2003, right 2015). DRY EYES. Insomnia. Hypothyroidism, seasonal ALLERGIES, and osteopenia. recent tx for water in right ear pt tx with steroids. pt states Dr Sotomayor is aware. following up with ENT 10/17/24 History of Any Multi-Drug Resistant Organisms: None Reported Past Surgical History: Breast Surgery, Orthopedic Surgery Additional Past Surgical History / Comment(s): bilat MASTECTOMY(Left 2003, right 2016). Left breast flap for reconstruction and right breast implant. TMJ - wired mouth shut [facility] [employer] [facility] 80's. SEVERAL SURGERIES ON FEET FOR PLANTAR FASCIATIS. ACHILLES TENDON REPAIR. D & C. Colonoscopy 2009(more recent Cologard testing). Past Anesthesia/Blood Transfusion Reactions: Previous Problems w/ Anesthesia, Postoperative Nausea & Vomiting (PONV) Additional Past Anesthesia/Blood Transfusion Reaction / Comm: FIRST REACTION TO PROPOFOL WAS rash traveling UP THE ARM WHERE IV HAD BEEN STARTED. SECOND RE ACTION, ANAPHYLASIS. Smoking Status: Never smoker - Past Family History Father Family Medical History: Cancer Additional Family Medical History / Comment(s): BRAIN cancer. Mother Family Medical History: Hypertension Additional Family Medical History / Comment(s): She denies family history of cancer of the breast, uterus, ovaries, or colon. Medications and Allergies Home Medications Medication Instructions Recorded Confirmed Type Aspirin 81 mg PO DAILY 12/05/14 10/18/24 History Biotin 5 mg PO DAILY 12/05/14 10/18/24 History Celecoxib [CeleBREX] 200 mg PO BID 12/05/14 10/18/24 History Levothyroxine Sodium [Synthroid] 75 mcg PO QA 12/05/14 10/18/24 History Brownell-3 Fatty Acids/Fish Oil [Fish 1 cap PO BID 12/05/14 10/18/24 History Oil 1,000 mg Softgel] Pseudoephedrine [Sudafed] 120 mg PO QA 12/05/14 10/18/24 History Simvastatin [Zocor] 10 mg PO HS 12/05/14 10/18/24 History Triamcinolone Acetonide [Nasacort] 1 spray EA [facility]STRIL [facility] 12/05/14 10/18/24 History Vitamin E (Dl,Tocopheryl Acet) 400 unit PO DAILY 12/05/14 10/18/24 History [Vitamin E (400 Iu = 180 mg)] cycloSPORINE [Restasis] 1 drop BOTH EYES BID 12/05/14 10/18/24 History Acetaminophen Tab [Tylenol Tab] 1,000 mg PO QID 03/21/18 10/18/24 History Turmeric Root Extract [Turmeric] 1,000 mg PO DAILY 03/21/18 10/18/24 History lisinopriL [Zestril] 5 mg PO DAILY 03/21/18 10/18/24 History Calcium 1000mg 1,000 mg PO DAILY 10/15/24 10/18/24 History Cholecalciferol (Vitamin D3) 1,250 mcg PO HOWE 10/15/24 10/18/24 History [Vitamin D3 (1250 Mcg = 50,000 Iu)] Loratadine [Claritin] 10 mg PO DAILY 10/15/24 10/18/24 History Allergies Allergy/AdvReac Type Severity Reaction Status Date / Time alcohol Allergy Severe red skin, Verified 10/18/24 11:35 [From Mastisol Liquid very Adhesive] itching gum mastic Allergy Severe red skin Verified 10/18/24 11:35 [From Mastisol Liquid and itching Adhesive] methyl salicylate Allergy Severe red skin Verified 10/18/24 11:35 [From Mastisol Liquid and itching Adhesive] storax Allergy Severe red skin Verified 10/18/24 11:35 [From Mastisol Liquid and itching Adhesive] propofol Allergy Anaphylaxis Verified 10/18/24 11:35 Physical Exam Vitals: Vital Signs Temp Pulse Pulse Pulse Resp BP Pulse Ox 10/19/24 09:05 77 18 10/19/24 07:51 97.3 F L 77 18 105/63 94 L 10/19/24 01:18 98.3 F 80 17 103/57 92 L 10/18/24 20:16 82 129/71 97 10/18/24 20:01 88 135/75 97 10/18/24 19:38 97.5 F L 91 17 131/64 98 10/18/24 19:31 93 137/69 98 10/18/24 19:17 83 131/64 97 10/18/24 19:01 86 146/76 98 10/18/24 18:46 81 132/76 97 10/18/24 18:32 77 134/69 10/18/24 18:16 78 135/69 10/18/24 18:01 71 126/71 10/18/24 17:46 78 119/75 95 10/18/24 17:15 72 16 100/48 95 10/18/24 17:00 75 16 115/57 100 10/18/24 16:45 78 16 129/61 100 10/18/24 16:30 78 14 121/65 100 10/18/24 16:21 97.0 F L 84 12 131/59 100 10/18/24 11:54 97.0 F L 88 16 151/70 97 Intake and Output 10/18/24 10/19/24 10/19/24 22:59 06:59 14:59 Intake Total 200 Output Total 430 1000 Balance -230 -1000 Intake: IV 200 Output: Urine 380 1000 Estimated Blood Loss 50 Other: Voiding Method Indwelling Catheter Toilet Weight 61.9 kg General appearance: no acute distress EENT; Eyes: Present: anicteric sclerae, EOMI, PERRLA, normal appearance ENT: Present: hearing grossly normal, normal oropharynx Neck: Present: normal ROM. Absent: lymphadenopathy, rigidity, thyromegaly; Carotids: negative: bruit present Thyroid: bilateral: normal size, negative: enlarged, nodule Respiratory: bilateral: CTA, negative: rales, rhonchi, wheezing Cardiovascular: regular: normal: S1, S2 Gastrointestinal: Present: normal bowel sounds, soft. Absent: distended, organomegaly, tenderness Genitourinary Comment(s): deferred Integumentary: Present: normal turgor. Absent: jaundiced, rash, ulcer Neurologic: Present: CNII-XII intact. Absent: focal deficits Musculoskeletal: Present: gait normal, strength equal bilaterally Psychiatric: Present: A&O x's 3, appropriate affect, intact judgment & insight Results CBC & Chem 7: 10/19/24 11:26 10/19/24 04:48 Labs: Abnormal Lab Results - Last 24 Hours (Table) 10/19/24 10/19/24 Range/Units 04:48 04:48 WBC 18.41 H (4.50-10.00) X 10*3/uL RBC 3.41 L (4.10-5.20) X 10*6/uL Hgb 10.5 L (12.0-15.0) g/dL Hct 31.8 L (37.2-46.3) % Immature Gran # 0.10 H (0.00-0.04) X 10*3/uL Neutrophils # 16.40 H (1.80-7.70) X 10*3/uL Eosinophils # 0 L (0.04-0.35) X 10*3/uL BUN/Creatinine Ratio 20.62 H (12.00-20.00) Ratio Calcium 8.6 L (8.7-10.3) mg/dL Assessment and Plan Assessment: 1. Severe back pain; severe stenosis and radiculopathy L4-S1/degenerative disks disease -Patient underwent surgery with L4-5 and L5-S1 posterolateral interbody fusion; laminectomy, facetectomy, foraminotomy autotomy for complete neural decompression, deformity correction and cage placement -POD #1 2. Leukocytosis; white blood count elevated at 18.41 confirm with repeat CBC revealing white blood count of 19.5; ; CRP is elevated at 1.5; procalcitonin is ordered and pending -Patient remains afebrile and does not appear to be toxic without any signs of infection -We will monitor CBC, CRP and procalcitonin; consult ID 3. Hypertension; Zestril 5 mg daily 4. Hyperlipidemia Zocor 10 mg daily; 5. Hypothyroidism levothyroxine 75 mcg daily; 6. Seasonal allergies; Claritin 10 mg daily DVT prophylaxis; SCDs/chemical anticoagulation per Ortho recommendations CODE STATUS; full code
[2024-10-19 14:11] VITALS: BP 104/60; PULSE 82; TEMP 98.2
[2024-10-19 14:29] LABS: Appearance,Urine Clear (Clear); Bilirubin,Urine Negative (Negative); Blood,Urine Negative (Negative); Color,Urine Colorless; Glucose,Urine (UA) Negative (Negative); Ketones,Urine Negative (Negative); Leukocyte Esterase,Urine Negative (Negative); Nitrite,Urine Negative (Negative); PH, Urine 5.5 (5.0-8.0); Protein,Urine Negative (Negative); Urobilinogen,Urine <2.0 mg/dL (<2.0)
--- NOTE | 2024-10-19 14:54 | P.PN ---
Subjective Progress Note Date: 10/19/24 Principal diagnosis: Status post L4-S1 MIS TLIF Patient evaluated today at bedside, her also was present. Patient is sitting up in bed with the LSO brace. She has been ambulating very well since surgery with the assistance of the walker. She has been urinating with no issues. Pain is well-controlled on current regimen, she is taking very minimal narcotics at this time. She denies headaches, lightheadedness, chest pain or shortness of breath Objective - Vital Signs Vital signs: Vital Signs Temp 98.2 F 10/19/24 13:56 Pulse 82 10/19/24 13:56 Resp 18 10/19/24 13:56 BP 104/60 10/19/24 13:56 Pulse Ox 98 10/19/24 13:56 FiO2 Intake & Output 10/18/24 10/19/24 10/19/24 18:59 06:59 18:59 Intake Total 1450 Output Total 430 1000 Balance 1020 -1000 Weight 61.9 kg Intake: IV 1450 Output: Urine 380 1000 Estimated Blood Loss 50 Other: Voiding Method Indwelling Catheter Toilet - Exam Gen: AOx3, NAD VSS stable at this time Integument: Postop dressing is in good position and condition Palpation: Mild tenderness with palpation of the lower lumbar spine ROM: Full range of motion in all major muscle groups of the bilateral upper and lower extremities Sensory Exam: Senory exam to light touch is intact C5-T1 Senosry exam to light touch is intact L2-S1 Motor: 5/5 strength appreciated the bilateral upper extremities with hip shoulder elevation, shoulder abduction, elbow extension, elbow flexion, wrist extension, wrist flexion, director e learning 4/5 strength appreciated bilateral lower extremities with hip flexion, knee extension, knee flexion, plantarflexion, dorsiflexion, EHL, FHL Reflexes: 2/4 in all UE and LE Negative Vianey's bilaterally Negative clonus bilaterally - Labs CBC & Chem 7: 10/19/24 11:26 10/19/24 04:48 Labs: Abnormal Lab Results - Last 24 Hours (Table) 10/19/24 10/19/24 10/19/24 Range/Units 04:48 04:48 11:26 WBC 18.41 H 19.5 H (4.50-10.00) X 10*3/uL RBC 3.41 L (4.10-5.20) X 10*6/uL Hgb 10.5 L (12.0-15.0) g/dL Hct 31.8 L (37.2-46.3) % Immature Gran # 0.10 H (0.00-0.04) X 10*3/uL Neutrophils # 16.40 H 16.8 H (1.80-7.70) X 10*3/uL Eosinophils # 0 L (0.04-0.35) X 10*3/uL BUN/Creatinine Ratio 20.62 H (12.00-20.00) Ratio Calcium 8.6 L (8.7-10.3) mg/dL C-Reactive Protein (<1.0) mg/dL 10/19/24 Range/Units 11:26 WBC (4.50-10.00) X 10*3/uL RBC (4.10-5.20) X 10*6/uL Hgb (12.0-15.0) g/dL Hct (37.2-46.3) % Immature Gran # (0.00-0.04) X 10*3/uL Neutrophils # (1.80-7.70) X 10*3/uL Eosinophils # (0.04-0.35) X 10*3/uL BUN/Creatinine Ratio (12.00-20.00) Ratio Calcium (8.7-10.3) mg/dL C-Reactive Protein 1.5 H (<1.0) mg/dL Assessment and Plan Assessment: Postoperative day #1 status post L4-S1 MIS TLIF Plan: Pain control, patient would like to limit narcotics for home. Plan for discharge home on gabapentin, we will provide her with a low-dose Hulbert as needed. She will also resume her Celebrex once home GI prophylaxis, will also discharge with stool softeners Wound care instructions were discussed, this to include when to remove surgical dressing, showering instructions Patient to utilize LSO brace when up and ambulating longer distances, recommend using walker at all times. No bending, lifting or twisting Medical recommendations are appreciated Discharge planning: Patient is stable for discharge home today Time with Patient: Less than 30
--- NOTE | 2024-10-19 15:02 | P.DS ---
Providers Date of admission: 10/18/2024 Expected date of discharge: 10/19/24 Attending physician: Isiah Sotomayor DO Consults: 10/18/24 16:28 Consult Physician Routine Consulting Provider: Nikolas Viveros Reason/Comments: medical management Do you want consulting provider notified?: Yes 10/19/24 13:41 Consult Physician Routine Consulting Provider: Joleen Davis Reason/Comments: Leukocytosis Do you want consulting provider notified?: Yes Primary care physician: Nikolas Viveros Hospital Course: Date of admission: 10/18/2024 Date of discharge: 10/19/2024 Admission diagnosis: Status post L4-S1 MIS TLIF Discharge diagnosis: Same Attending physician: Dr. Sotomayor Surgical procedures: L4-S1 MIS TLIF Brief history: Patient is a 74-year-old female with a history of progressive low back pain, bilateral lower extremity weakness and radiculopathy, L4-L5 and L5-S1 spondylosis with neuroforaminal and central canal stenosis. At this point patient has failed conservative treatment measures and has opted to proceed with a elective L4-S1 minimally invasive transforaminal lumbar interbody fusion. Hospital course: Details of patient's surgery can be found in operative report. Patient tolerated the procedure well and was subsequently transported to orthopedic floor. Patient's orthopeidc and medical care was provided daily. Patient had daily laboratory tests performed for evaluation of overall blood counts. Patient had daily physical therapy to include strengthening range of motion as well as education with walker ambulation. Patient was treated with SHRUTHI hose and compression stockings for their postoperative DVT prophylaxis during their inpatient stay. Patient was noted to have a relatively uneventful postoperative course. Patient reported satisfactory pain control with oral pain medications by postoperative day 0. Patient showed satisfactory progress with physical therapy. Patient moved steadily through the program and had no difficulty meeting the goals by postoperative day 1. Given patient's otherwise satisfactory course and having met physical therapy goals, plan is to discharge patient home on postoperative day 1. Discharge condition/disposition: Patient will be discharged home in stable condition. Discharge medications: Instructions are given on resumption of patient's normal daily medications per primary care recommendation, in addition patient will be prescribed Pinewood 5 mg / 325 mg, Gabapentin 200 mg, Senna S, Duricef 500 mg. Spine Discharge and Recovery Instructions Medications: See medication list All medication refills should be obtained through your primary care doctor or your clinic spine surgeon. Please discuss prescription refills at your follow up appointment. Do not call the hospital for medication refills. Dressing: Leave your dressing in place for a total of 5 days post operatively. Then you may remove your dressing and leave open to air. Keep the area clean and if not able to keep area clean, then cover with sterile gauze and tape. Showering: You may shower 3 days after your procedure allowing soap and water to run over incision. Do not scrub. Do not soak. Blot dry. Follow up: Please confirm a follow up appointment with your surgeon 3 weeks post operatively. Please make an appointment to follow up with your PCP in 1-2 weeks after surgery for evaluation '3 phase, 3-week plan' POST OP WEEKS 1-3 1. Lifting/carrying/pushing/pulling limited to less than 5 pounds. 2. Do not sit for longer than 15 minutes at one time. Get up and walk around. Prolonged sitting is NOT advised. If you lay down, see if you can tolerate laying down on you front (belly side) 3. Walk for periods of 15 minutes = 1 mile but no longer; do it multiple times times each day. 4. Ice your low back after activity. POST OP WEEKS 3-6 1. Lifting limited to less than 20 pounds. 2. Do not sit for longer than 30 minutes at a time. Frequently change positions. Use a sit-to stand workstation or take frequent breaks from sitting if you have returned to work. 3. Walk for 30 minutes each day. If possible, do these three or more times a day POST OP WEEKS 6+ At your 6-week appointment we will give you a physical therapy referral to focus on a core stabilization and strengthening program. You should also work on leg & buttock strengthening, hamstring & quadriceps stretching, and continue a low impact aerobic activity program such as swimming, walking, or riding a stationary bicycle. During the initial 6 weeks after your surgery, you are at the highest risk of re-injuring your spine. You should generally avoid BLT's (bending, lifting and twisting combination motions) and follow the above guidelines to reduce the chance of reinjury. You can anticipate post op appointments in our office at approximately 3 weeks and 6 weeks after your surgery. INCISION CARE: If your incision is not draining you do NOT need to cover it with a dressing. Keep your incision clean, dry and intact. In most cases, we apply skin glue, guille or sutures to the incision at the time of surgery. This will be like a crust or have the appearance of a scab and will fall off in time on its own. The stitches or guille need to be removed at 3 weeks post op appointment. You may begin to shower 3 days after surgery (this allows the glue to segovia well). However, please avoid scrubbing the incision site or peeling off any of the skin glue. This will ensure optimal healing of your incision. Also, during this time avoid soaking the incision area in water - this includes swimming pools, hot tubs or baths. No ointments, lotions or oils on the incision until your surgeon allows. Leave guille, sutures or glue in place. Neurological dysfunction that comes on suddenly can also be a sign of a stroke. Below some common symptoms of a stroke are listed: B - balance difficulty such as sudden onset walking or leaning to one side - NEW E - eye problem such as sudden double vision or trouble seeing on one side - NEW F - Facial weakness or numbness on one side - NEW A - Arm or leg weakness or numbness on one side - NEW S - Slurred speech or difficulty with word finding - NEW T - Time is BRAIN! Call 911 as soon as you recognize these symptoms Diet: Consume a regular diet rich in vegetables and lean protein such as chicken or fish. You should consume in a ratio of approximately 20% fats|40% carbohydrates|40%protein. Vegetables, sweet potatoes, brown rice or quinoa are examples of good carbohydrates. Chips, white bread, cookies and sweets/sugar are examples of bad carbohydrates. Limit your bad carbs, go wild with good carbs. "Life's Simple 7" Guidelines as per [place] [employer] These will help you reclaim your life after surgery and lime kiln worker helper in your recovery, keeping in mind your restrictions. (1) Get Active. Physical activity can help people lose weight, control high blood pressure and cholesterol, feel emotionally better, and sleep better. (2) Control Cholesterol. Avoid a diet high in saturated fat, trans fat, & cholesterol. Limit whole milk & cream, ice cream, butter, egg yolks, processed meats (like sausage and hot dogs), and fatty meats. Choose healthy foods that are low in saturated fat, trans fat and cholesterol which include: Fruits and vegetables, fiber rich grain products (like whole grain pasta and brown rice), lean meat such as chicken, fish, nuts, seeds, and legumes. (3) Eat Better. Eat small portions. Shop at the grocery with a list and do not stray from it. Tips for a healthy diet include: Limit sodium intake to less than 1500mg daily, avoid prepackaged, processed, and fast foods, choose a diet rich in fruits, vegetables, and whole grain, high fiber foods, and limit saturated & cholesterol in your diet. (4) Manage Blood Pressure. If you have high blood pressure, you should have a cuff at home so that you can check your blood pressure regularly. Be sure you have a good cuff. An arm one is generally better than a wrist one. Bring the cuff to a doctor's appointment to validate that the measurements that your cuff are taking are accurate. Take your blood pressure twice daily when you are sitting down and relaxing. Record the numbers in a log and bring this log with you to your doctors' appointments. (5) Lose Weight if your BMI is above 25. A healthy BMI is between 19-25. To calculate Your BMI, you may use a Standard BMI Calculator on the NIH BMI website: <www.nhlbi.nih.gov/guidelines/obesity/BMI/bmicalc.htm>. Weigh oneself daily. If you are overweight, set a goal to lose weight. A pound a week loss if needed is a good target. (6) Reduce Blood Sugar. Limit foods and liquids with "added sugars." (Added sugars include sucrose, fructose, glucose, maltose, dextrose, high fructose corn syrup, corn syrup, concentrated fruit juice and honey). (7) Stop Smoking. If you smoke, quitting smoking is one of the best things that you can do for your health. Smoking increases your risk of heart attack, stroke, and peripheral vascular disease, which is a build-up of plaque in your arteries. Please discard all the cigarettes and lighters in your house. Have a plan for what you will do when you have the urge to smoke. Direct and second- hand smoke shortens your life as well as the lives of your family, friends and others around you. For your health and the health of those around you, please c onsider quitting! Proper Bending Body Mechanics: Maintain a wide stance with one foot slightly in front of the other. Keep your back straight. Bend utilizing the strength in your hips and knees. Do not bend at the waist. Maintain the lifted object at your waist-level close to your body. Avoid lifting weight that causes immediately pain or pain anywhere in the body afterwards. Smoking/Nicotine If there was ever one thing that you could do to increase your overall health, decrease your risk of cardiovascular problems by about 39% the second you make the choice, it is to STOP SMOKING. Your body's most instant gratification is the second you stop smoking. We have all heard the studies, read the articles but it is true, smoking is extremely bad for your overall health, and moreover it is detrimental to your bone health. Nicotine, IN ANY FORM, kills bone cells, prevents your body from healing fractures, and significantly prolongs healing after surgery. In spine surgery specifically, it increases your risk of not healing your bones to create a fusion and increases your risk of having a revision surgery due to this up to 60%. I know it is hard. I know it feels impossible. But there are ways. Take control of your life. We are here to help you through it. And when you are ready, ask us and we can direct you to help if you desire. Use the START Plan to Quit Smoking (please visit the Helpguide.org website listed below for more information): S = Set a quit date. Choose a date within the next 2 weeks, so you have enough time to prepare without losing your motivation to quit. If you mainly smoke at work, quit on the weekend, so you have a few days to adjust to the change. T = Tell family, friends, and co-workers that you plan to quit. Let your friends and family in on your plan to quit smoking and tell them you need their support and encouragement to stop. Look for a quit corey who wants to stop smoking as well. You can help each other get through the rough times. A = Anticipate and plan for the challenges you'll face while quitting. Most people who begin smoking again do so within the first 3 months. You can help yourself make it through by preparing ahead for common challenges, such as nicotine withdrawal and cigarette cravings. R = Remove cigarettes and other tobacco products from your home, car, and work. Throw away all your cigarettes (no emergency pack!), lighters, ashtrays, and matches. Wash your clothes and freshen up anything that smells like smoke. Shampoo your car, clean your drapes and carpet, and steam your furniture. T = Talk to your doctor about getting help to quit. Your doctor can prescribe medication to help with withdrawal and suggest other alternatives. If you can't see a doctor, you can get many products over the counter at your local pharmacy or grocery store, including the nicotine patch, nicotine lozenges, and nicotine gum. Resources for Quitting Smoking: <https://www.[place].gov/documents/[facility]/Quit_Tobacco_Resources_for_patients_313 480_7.pdf> Supplementation: Take recommended dosages of Vitamin D and Calcium to help fortify your bones and help them to heal. See your health maintenance packet for dosages and recommended levels. DVT/VTE prophylaxis: You will be given compression stockings from the hospital. Wear these daily for the first two weeks after surgery. You may take them off at night. You may be prescribed a medication to help thin your blood. Take this as directed. If you are not prescribed this medication, early and frequent ambulation has been shown to be the best prophylaxis to deep vein thrombosis and sequelae related to this event. Procedures: L4S1 MIS TLIF Patient Condition at Discharge: Good Plan - Discharge Summary Discharge Rx Participant: No New Discharge Prescriptions: New cefaDROXiL [Duricef] 500 mg PO Q12HR 5 Days #10 cap Gabapentin [Neurontin] 200 mg PO BID 20 Days #40 cap HYDROcodone/APAP 5-325MG [Pinewood 5-325] 1 tab PO Q6HR PRN #28 tab PRN Reason: Pain Sennosides/Docusate Sodium [Senna-S 8.6-50 mg Tablet] 2 each PO DAILY PRN #30 tablet PRN Reason: Constipation No Action Vitamin E (Dl,Tocopheryl Acet) [Vitamin E (400 Iu = 180 mg)] 400 unit PO DAILY Triamcinolone Acetonide [Nasacort] 1 spray EA NOSTRIL QAM Simvastatin [Zocor] 10 mg PO HS Pseudoephedrine [Sudafed] 120 mg PO QAM [place]-3 Fatty Acids/Fish Oil [Fish Oil 1,000 mg Softgel] 1 cap PO BID Levothyroxine Sodium [Synthroid] 75 mcg PO QAM cycloSPORINE [Restasis] 1 drop BOTH EYES BID Celecoxib [CeleBREX] 200 mg PO BID Biotin 5 mg PO DAILY Aspirin 81 mg PO DAILY Acetaminophen Tab [Tylenol Tab] 1,000 mg PO QID lisinopriL [Zestril] 5 mg PO DAILY Turmeric Root Extract [Turmeric] 1,000 mg PO DAILY Loratadine [Claritin] 10 mg PO DAILY Cholecalciferol (Vitamin D3) [Vitamin D3 (1250 Mcg = 50,000 Iu)] 1,250 mcg PO HOWE Calcium 1000mg 1,000 mg PO DAILY Discharge Medication List Aspirin 81 mg PO DAILY 12/05/14 [History] Biotin 5 mg PO DAILY 12/05/14 [History] Celecoxib [CeleBREX] 200 mg PO BID 12/05/14 [History] Levothyroxine Sodium [Synthroid] 75 mcg PO QAM 12/05/14 [History] [place]-3 Fatty Acids/Fish Oil [Fish Oil 1,000 mg Softgel] 1 cap PO BID 12/05/14 [History] Pseudoephedrine [Sudafed] 120 mg PO QAM 12/05/14 [History] Simvastatin [Zocor] 10 mg PO HS 12/05/14 [History] Triamcinolone Acetonide [Nasacort] 1 spray EA NOSTRIL QAM 12/05/14 [History] Vitamin E (Dl,Tocopheryl Acet) [Vitamin E (400 Iu = 180 mg)] 400 unit PO DAILY 12/05/14 [History] cycloSPORINE [Restasis] 1 drop BOTH EYES BID 12/05/14 [History] Acetaminophen Tab [Tylenol Tab] 1,000 mg PO QID 03/21/18 [History] Turmeric Root Extract [Turmeric] 1,000 mg PO DAILY 03/21/18 [History] lisinopriL [Zestril] 5 mg PO DAILY 03/21/18 [History] Calcium 1000mg 1,000 mg PO DAILY 10/15/24 [History] Cholecalciferol (Vitamin D3) [Vitamin D3 (1250 Mcg = 50,000 Iu)] 1,250 mcg PO HOWE 10/15/24 [History] Loratadine [Claritin] 10 mg PO DAILY 10/15/24 [History] Gabapentin [Neurontin] 200 mg PO BID 20 Days #40 cap 10/19/24 [Rx] HYDROcodone/APAP 5-325MG [P[place]wood 5-325] 1 tab PO Q6HR PRN #28 tab 10/19/24 [Rx] Sennosides/Docusate Sodium [Senna-S 8.6-50 mg Tablet] 2 each PO DAILY PRN #30 tablet 10/19/24 [Rx] cefaDROXiL [Duricef] 500 mg PO Q12HR 5 Days #10 cap 10/19/24 [Rx] Follow up Appointment(s)/Referral(s): Isiah Sotomayor DO [Doctor of Osteopathic Medicine] - 2 Weeks Activity/Diet/Wound Care/Special Instructions: Spine Discharge and Recovery Instructions Medications: See medication list All medication refills should be obtained through your primary care doctor or your clinic spine surgeon. Please discuss prescription refills at your follow up appointment. Do not call the hospital for medication refills. Dressing: Leave your dressing in place for a total of 5 days post operatively. Then you may remove your dressing and leave open to air. Keep the area clean and if not able to keep area clean, then cover with sterile gauze and tape. Showering: You may shower 3 days after your procedure allowing soap and water to run over incision. Do not scrub. Do not soak. Blot dry. Follow up: Please confirm a follow up appointment with your surgeon 3 weeks post operatively. Please make an appointment to follow up with your PCP in 1-2 weeks after surgery for evaluation '3 phase, 3-week plan' POST OP WEEKS 1-3 1. Lifting/carrying/pushing/pulling limited to less than 5 pounds. 2. Do not sit for longer than 15 minutes at one time. Get up and walk around. Prolonged sitting is NOT advised. If you lay down, see if you can tolerate laying down on you front (belly side) 3. Walk for periods of 15 minutes = 1 mile but no longer; do it multiple times times each day. 4. Ice your low back after activity. POST OP WEEKS 3-6 1. Lifting limited to less than 20 pounds. 2. Do not sit for longer than 30 minutes at a time. Frequently change positions. Use a sit-to stand workstation or take frequent breaks from sitting if you have returned to work. 3. Walk for 30 minutes each day. If possible, do these three or more times a day POST OP WEEKS 6+ At your 6-week appointment we will give you a physical therapy referral to focus on a core stabilization and strengthening program. You should also work on leg & buttock strengthening, hamstring & quadriceps stretching, and continue a low imp act aerobic activity program such as swimming, walking, or riding a stationary bicycle. During the initial 6 weeks after your surgery, you are at the highest risk of re-injuring your spine. You should generally avoid BLT's (bending, lifting and twisting combination motions) and follow the above guidelines to reduce the chance of reinjury. You can anticipate post op appointments in our office at approximately 3 weeks and 6 weeks after your surgery. INCISION CARE: If your incision is not draining you do NOT need to cover it with a dressing. Keep your incision clean, dry and intact. In most cases, we apply skin glue, guille or sutures to the incision at the time of surgery. This will be like a crust or have the appearance of a scab and will fall off in time on its own. The stitches or guille need to be removed at 3 weeks post op appointment. You may begin to shower 3 days after surgery (this allows the glue to segovia well). However, please avoid scrubbing the incision site or peeling off any of the skin glue. This will ensure optimal healing of your incision. Also, during this time avoid soaking the incision area in water - this includes swimming pools, hot tubs or baths. No ointments, lotions or oils on the incision until your surgeon allows. Leave guille, sutures or glue in place. Neurological dysfunction that comes on suddenly can also be a sign of a stroke. Below some common symptoms of a stroke are listed: B - balance difficulty such as sudden onset walking or leaning to one side - NEW E - eye problem such as sudden double vision or trouble seeing on one side - NEW F - Facial weakness or numbness on one side - NEW A - Arm or leg weakness or numbness on one side - NEW S - Slurred speech or difficulty with word finding - NEW T - Time is BRAIN! Call 911 as soon as you recognize these symptoms Diet: Consume a regular diet rich in vegetables and lean protein such as chicken or fish. You should consume in a ratio of approximately 20% fats|40% carbohydrates|40%protein. Vegetables, sweet potatoes, brown rice or quinoa are examples of good carbohydrates. Chips, white bread, cookies and sweets/sugar are examples of bad carbohydrates. Limit your bad carbs, go wild with good carbs. "Life's Simple 7" Guidelines as per [place] [employer] These will help you reclaim your life after surgery and lime kiln worker helper in your recovery, keeping in mind your restrictions. (1) Get Active. Physical activity can help people lose weight, control high blood pressure and cholesterol, feel emotionally better, and sleep better. (2) Control Cholesterol. Avoid a diet high in saturated fat, trans fat, & cholesterol. Limit whole milk & cream, ice cream, butter, egg yolks, processed meats (like sausage and hot dogs), and fatty meats. Choose healthy foods that are low in saturated fat, trans fat and cholesterol which include: Fruits and vegetables, fiber rich grain products (like whole grain pasta and brown rice), lean meat such as chicken, fish, nuts, seeds, and legumes. (3) Eat Better. Eat small portions. Shop at the grocery with a list and do not stray from it. Tips for a healthy diet include: Limit sodium intake to less than 1500mg daily, avoid prepackaged, processed, and fast foods, choose a diet rich in fruits, vegetables, and whole grain, high fiber foods, and limit saturated & cholesterol in your diet. (4) Manage Blood Pressure. If you have high blood pressure, you should have a cuff at home so that you can check your blood pressure regularly. Be sure you have a good cuff. An arm one is generally better than a wrist one. Bring the cuff to a doctor's appointment to validate that the measurements that your cuff are taking are accurate. Take your blood pressure twice daily when you are sitting down and relaxing. Record the numbers in a log and bring this log with you to your doctors' appointments. (5) Lose Weight if your BMI is above 25. A healthy BMI is between 19-25. To calculate Your BMI, you may use a Standard BMI Calculator on the NIH BMI website: <www.nhlbi.nih.gov/guidelines/obesity/BMI/bmicalc.htm>. Weigh oneself daily. If you are overweight, set a goal to lose weight. A pound a week loss if needed is a good target. (6) Reduce Blood Sugar. Limit foods and liquids with "added sugars." (Added sugars include sucrose, fructose, glucose, maltose, dextrose, high fructose corn syrup, corn syrup, concentrated fruit juice and honey). (7) Stop Smoking. If you smoke, quitting smoking is one of the best things that you can do for your health. Smoking increases your risk of heart attack, stroke, and peripheral vascular disease, which is a build-up of plaque in your arteries. Please discard all the cigarettes and lighters in your house. Have a plan for what you will do when you have the urge to smoke. Direct and second- hand smoke shortens your life as well as the lives of your family, friends and others around you. For your health and the health of those around you, please consider quitting! Proper Bending Body Mechanics: Maintain a wide stance with one foot slightly in front of the other. Keep your back straight. Bend utilizing the strength in your hips and knees. Do not bend at the waist. Maintain the lifted object at your waist-level close to your body. Avoid lifting weight that causes immediately pain or pain anywhere in the body afterwards. Smoking/Nicotine If there was ever one thing that you could do to increase your overall health, decrease your risk of cardiovascular problems by about 39% the second you make the choice, it is to STOP SMOKING. Your body's most instant gratification is the second you stop smoking. We have all heard the studies, read the articles but it is true, smoking is extremely bad for your overall health, and moreover it is detrimental to your bone health. Nicotine, IN ANY FORM, kills bone cells, prevents your body from healing fractures, and significantly prolongs healing after surgery. In spine surgery specifically, it increases your risk of not healing your bones to create a fusion and increases your risk of having a revision surgery due to this up to 60%. I know it is hard. I know it feels impossible. But there are ways. Take control of your life. We are here to help you through it. And when you are ready, ask us and we can direct you to help if you desire. Use the START Plan to Quit Smoking (please visit the [employer]org website listed below for more information): S = Set a quit date. Choose a date within the next 2 weeks, so you have enough time to prepare without losing your motivation to quit. If you mainly smoke at work, quit on the weekend, so you have a few days to adjust to the change. T = Tell family, friends, and co-workers that you plan to quit. Let your friends and family in on your plan to quit smoking and tell them you need their support and encouragement to stop. Look for a quit corey who wants to stop smoking as well. You can help each other get through the rough times. A = Anticipate and plan for the challenges you'll face while quitting. Most people who begin smoking again do so within the first 3 months. You can help yourself make it through by preparing ahead for common challenges, such as nicotine withdrawal and cigarette cravings. R = Remove cigarettes and other tobacco products from your home, car, and work. Throw away all your cigarettes (no emergency pack!), lighters, ashtrays, and matches. Wash your clothes and freshen up anything that smells like smoke. Shampoo your car, clean your drapes and carpet, and steam your furniture. T = Talk to your doctor about getting help to quit. Your doctor can prescribe medication to help with withdrawal and suggest other alternatives. If you can't see a doctor, you can get many products over the counter at your local pharmacy or grocery store, including the nicotine patch, nicotine lozenges, and nicotine gum. Resources for Quitting Smoking: <https://www.[place].gov/documents/[facility]/Quit_Tobacc o_Resources_for_patients_313480_7.pdf> Supplementation: Take recommended dosages of Vitamin D and Calcium to help fortify your bones and help them to heal. See your health maintenance packet for dosages and recommended levels. DVT/VTE prophylaxis: You will be given compression stockings from the hospital. Wear these daily for the first two weeks after surgery. You may take them off at night. You may be prescribed a medication to help thin your blood. Take this as directed. If you are not prescribed this medication, early and frequent ambulation has been shown to be the best prophylaxis to deep vein thrombosis and sequelae related to this event. Discharge Disposition: HOME SELF-CARE
[2024-10-19] MEDS ORDERED: cycloSPORINE 0.05% OPHTH 0.4 ML DROPERETTE BOTH EYES SCH (21:00)
[2024-10-19] MEDS ORDERED: ATORVASTATIN 10 MG TAB PO SCH (21:00)
[2024-10-20] MEDS ORDERED: LEVOTHYROXINE 75 MCG TAB PO SCH (06:30)
[2024-10-20] MEDS ORDERED: VITAMIN E (DL,TOCOPHERYL ACET) 400 UNIT (180 MG) CAP PO SCH (09:00)
[2024-10-20] MEDS ORDERED: LORATADINE 10 MG TAB PO SCH (09:00)
[2024-10-20] MEDS ORDERED: CALCIUM CARBONATE 500 MG CHEWABLE PO SCH (09:00)
[2024-10-20] MEDS ORDERED: lisinopriL 5 MG TAB PO SCH (09:00)
[2024-10-20] MEDS ORDERED: NON FORMULARY DRUG (Biotin [Biotin] 5 MG Capsule) PO SCH (09:00)
[2024-10-20] MEDS ORDERED: FLUTICASONE NASAL 50MCG/SPRAY 16GM BTL EA NOSTRIL SCH (09:00)
== END 2024-10-19 15:58 | disposition home or self-care (01) ==
LOC: OR 10:54 → 4SSUR 17:06 → OR 10-19 15:58
PROVIDERS: ATTEND Orthopaedic Surgery
DX: M47.26 Other spondylosis with radiculopathy, lumbar region (principal); M51.16 Intervertebral disc disorders with radiculopathy, lumbar region; M48.061 Spinal stenosis, lumbar region without neurogenic claudication; M43.16 Spondylolisthesis, lumbar region; M47.27 Other spondylosis with radiculopathy, lumbosacral region; M48.07 Spinal stenosis, lumbosacral region; M43.17 Spondylolisthesis, lumbosacral region; I10 Essential (primary) hypertension; E78.5 Hyperlipidemia, unspecified; E03.9 Hypothyroidism, unspecified; M85.80 Other specified disorders of bone density and structure, unspecified site; J30.2 Other seasonal allergic rhinitis; D72.829 Elevated white blood cell count, unspecified; Z91.89 Other specified personal risk factors, not elsewhere classified; Z79.82 Long term (current) use of aspirin; Z79.1 Long term (current) use of non-steroidal anti-inflammatories (NSAID); Z79.890 Hormone replacement therapy; Z79.899 Other long term (current) drug therapy; Z85.3 Personal history of malignant neoplasm of breast; Z87.892 Personal history of anaphylaxis; Z88.4 Allergy status to anesthetic agent; Z91.048 Other nonmedicinal substance allergy status
CPT/HCPCS: 22634; 22207; 22208; 61783; 22842; 20930; 20936; 22633; 97161; 80048; 85025; 86140; 81003; 84145; 72100; 72131; J1100; J0690 ×2; J2405; J1885 ×2; J0665